=== PATIENT | female | born 1985 | race Two or more races ===

== ENCOUNTER 2021-08-20 09:17 | Outpatient (REF) | payer OTHER, SELFPAY ==
[2021-08-21 05:34] LABS: CT PCR NOT DETECTED (Not Detect.); NG PCR NOT DETECTED (Not Detect.)
[2021-08-21 13:08] LABS: BV Int Neg Control Negative (Negative); BV Int Pos Control Positive (Positive)
[2021-08-28 22:17] LABS: HPV 16 RNA NOT DETECTED (NOT DETECTED); HPV mRNA E6/E7 rflx Detected (Not Detected)
== END 2021-08-20 09:18 | disposition home or self-care (01) ==
LOC: HO.LAB 09:17
PROVIDERS: Visit Provider Advanced Practice Midwife
DX: Z01.419 Encounter for gynecological examination (general) (routine) without abnormal findings (principal); Z11.51 Encounter for screening for human papillomavirus (HPV)
CPT/HCPCS: 87480; 87491; 87510; 87591; 87624; 87625; 87660; 88142

== ENCOUNTER 2021-10-01 10:44 | Outpatient (REF) | payer OTHER, SELFPAY ==
--- NOTE | ~2021-10-01 | US_ITS ---
EXAMINATION: US PELVIS CLINICAL INFORMATION: Dysmenorrhea, last menstrual period 09/13/2021, patient denies pain. COMPARISON: 09/29/2012 TECHNIQUE: Ultrasound of the pelvis is performed using both transabdominal and transvaginal transducers along with Doppler. Transvaginal imaging is performed due to inadequate visualization transabdominally. FINDINGS: Uterus is heterogeneous and measures 8.4 x 5.0 x 6.0 cm. No discrete fibroids. No significant free fluid. Endometrial thickness is 0.8 cm. Bilateral ovaries are unremarkable. Right ovary measures 3.5 x 2.1 x 2.8 cm, volume 11.0 mL and left ovary 2.9 x 2.3 x 2.3 cm, volume 7.7 mL. US/US pelvic and transvaginal IMPRESSION: 1. No discrete fibroids. 2. Endometrial thickness 0.8 cm. 3. Unremarkable bilateral ovaries. 4. No significant free fluid.
== END 2021-10-01 10:45 | disposition home or self-care (01) ==
LOC: HO.US 10:44
PROVIDERS: Visit Provider Advanced Practice Midwife
DX: N94.6 Dysmenorrhea, unspecified (principal)
CPT/HCPCS: 76830; 76856

== ENCOUNTER 2023-12-23 17:24 | Emergency (ER) | payer MEDICAID, SELFPAY ==
--- NOTE | ~2023-12-23 | US_ITS ---
EXAMINATION: US PELVIS CLINICAL INFORMATION: Pain. COMPARISON: None available. TECHNIQUE: Ultrasound of the pelvis is performed using both transabdominal and transvaginal transducers along with Doppler. Transvaginal imaging is performed due to inadequate visualization transabdominally. FINDINGS: Uterus: The uterus is anteverted and measures 8.1 x 4.7 x 5.6 cm. The endometrium measures 0.8 cm containing a small amount of hypoechoic material consistent with fluid. The uterus is smooth in contour and has normal myometrial echogenicity. No visible fibroid. Nabothian cysts are noted. Adnexa: Both ovaries are visualized. There is normal color flow to the adnexa. There is no ovarian torsion. There is no pelvic ascites or fluid collection. Right ovary measures 3 x 2.1 x 2.4 cm. Flow is demonstrated within the right ovary Left ovary measures 3 x 2.1 x 2.6 cm. Flow demonstrated within the left ovary. US/US pelvic and transvaginal IMPRESSION: Small amount of fluid within the endometrial canal. Otherwise unremarkable pelvic ultrasound. Electronically signed by: Juan Garzon MD 12/24/2023 01:20 AM EDT
[2023-12-23 18:47] VITALS: BP 141/107; PULSE 80; RESP 18; TEMP 36.4; O2SAT 98; BMI 31.1
--- NOTE | 2023-12-23 19:05 | ED.GENADULT ---
HPI - General Adult General Chief complaint: Vaginal Bleeding Stated complaint: L sided abdominal pain Time Seen by Provider: 12/23/23 23:04 Source: patient Mode of arrival: ambulatory Limitations: no limitations History of Present Illness ED Provider: Dr. Crystal HPI narrative: Patient is a 38yo female with presents with 2 weeks of vaginal bleeding and Left lower pelvic pain. Patient states she is not as she has a tubal ligation. Onset (ago): week(s) Related Data Home Medications ?Medication ?Instructions ?Recorded ?Confirmed cetirizine 10 mg tablet (Zyrtec) 10 mg PO DAILY PRN 08/20/21 08/20/21 Previous Rx's ?Medication ?Instructions ?Recorded metronidazole 500 mg tablet 500 mg PO BID 7 days #14 tabs 08/21/21 naproxen 500 mg tablet (Naprosyn) 500 mg PO BID #20 tabs 12/24/23 Allergies Allergy/AdvReac Type Severity Reaction Status Date / Time sumatriptan [From IMITREX] Allergy Intermediate VOMITING/DI Verified 12/23/23 18:49 ZZINESS topiramate [Topamax] Allergy Unknown nausea Verified 12/23/23 18:49 SHELLFISH Allergy Severe SWELLING Uncoded 10/08/21 09:12 shellfish Allergy Unknown hives Uncoded 10/08/21 09:12 trees, ragweed, grass Allergy Unknown rash Uncoded 10/08/21 09:12 Review of Systems Review of Systems: Yes all other systems are reviewed and are negative Neurologic: Denies Sensory deficit (Neuro) PMFSH Past Medical History Medical History Asthma Surgical History H/O tubal ligation Family History Family History Father HTN (hypertension) Diabetes Mother HTN (hypertension) Diabetes Paternal Aunt Breast cancer Paternal Aunt Ovarian cancer Paternal Uncle Colon cancer Social History Social History Household Members: Children Housing: Apartment Alcohol intake: current Alcohol intake frequency: holidays/special occasions only Patient Tobacco Use Status: Current everyday Tobacco user Tobacco use type: Cigarette Cigarettes Per Day: 2 Years Smoked: 3 Smoked in Last 30 Days: No Use of substances other than those prescribed or required for medical reasons: No Advance Directives: No Advance Directives Information Provided: No Current occupational status: employed 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 Sexual orientation: Straight/Heterosexual Gender identity: Female Physical Exam ED Vital Signs: Vital Signs - 24 hr 12/23/23 18:47 12/23/23 23:14 Temperature 97.6 F 98.1 F Pulse Rate 80 63 Respiratory Rate 18 16 Blood Pressure 141/107 H 142/94 H Pulse Oximetry 98 98 Oxygen Delivery Method Room Air Room Air BMI result Body Mass Index 31.1 Const General: healthy appearing Nutritional Appearance: average body habitus Orientation/consciousness: oriented to person and patient oriented x3 Limitations: no limitations HENMT Head: Yes normal to inspection Ears: external ears normal General nose exam: Normal external nose present Mouth: Normal oral and palatal mucosa present and oropharynx normal Throat: Yes posterior oropharynx normal Eyes General: appearance normal, both eyes and all related structures Neck Neck: Yes normal visual inspection Chest Chest palpation & inspection: normal inspection of the chest Resp Auscultation: clear to auscultation bilaterally Cardio Jugular venous distension: no JVD Rate: regular rate Rhythm: regular rhythm Heart sounds: S1 normal heart sound present and S2 normal heart sound present GI Other: soft abdomen, slight left lower abdominal pain Palpation (GI): Soft to palpation and No hepatosplenomegaly present Auscultation: normal bowel sounds General: Yes no CVA tenderness Back/Spine/Pelvis Back: no CVA tenderness Skin General skin exam: no rashes or lesions noted Neuro General: oriented to person and patient oriented x3 Cranial nerves: Yes CN's II-XII intact bilaterally Motor exam (neuro): 5/5 motor strength present throughout Sensory Exam: No Sensory deficit (Neuro) Extrem General: Yes normal to inspection Psych Appearance: grossly normal Course Course Course Narrative: This is an RME: Additional HPI, ROS, PE not included below will be deferred to primary provider. RME assessment and note performed by: Purnima Key PA-C This is a 38-year-old female who presents emergency department with complaints of vaginal bleeding since December 08. She also reports left lower quadrant pain. Plan: Labs, further ER evaluation needed. Reevaluation(s) Reevaluation #1: patient with dysfunctional uterine bleeding. 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 Time: 01:47 Medications Administered Discontinued Medications Generic Name Dose Route Start Last Admin Trade Name Jessica PRN Reason Stop Dose Admin Ketorolac Tromethamine 60 mg 12/23/23 23:08 12/23/23 23:52 Ketorolac Tromethamine 60 Mg/2 Ml Vial IM 12/23/23 23:09 60 mg ONCE ONE Administration Medical Decision Making Differential Diagnosis Differential Diagnoses: The differential diagnosis associated with the presentation includes (ectopic , miscarriage, dysfunctional uterine bleeding, ovarian cyst) Admission/Observation Consideration of admission/observation: Escalation of care including admission/observation considered (upon arrival admission was considered) Lab Data 12/23/23 20:21 12/23/23 20:21 Labs: Lab Results 12/23/23 Range/Units 20:21 WBC 9.8 (4.8-10.8) X10*3/uL RBC 4.41 (4.20-5.50) X10*6/uL Hgb 13.6 (12.0-16.0) g/dl Hct 38.6 (37.0-47.0) % MCV 87.5 (80.0-98.0) fL MCH 30.8 (27.0-33.0) pg MCHC 35.2 H (31.0-35.0) g/dl RDW 11.9 (11.0-16.0) % Plt Count 288 (160-400) X10*3/uL MPV 10.2 (9.4-12.3) fL Immature Gran % (Auto) 0.2 (0.0-0.4) % Neut % (Auto) 56.6 (45-73) % Lymph % (Auto) 34.3 (20-40) % [place] % (Auto) 6.3 (2-11) % Eos % (Auto) 2.0 (0-4) % Baso % (Auto) 0.6 (0-2) % Lymph # (Auto) 3.4 (1.2-4.9) X10*3/uL [place] # (Auto) 0.6 (0.1-1.2) X10*3/uL Eos # (Auto) 0.2 (0.0-0.4) X10*3/uL Baso # (Auto) 0.1 (0.0-0.2) X10*3/uL Abs Immat Gran (auto) 0.02 (0.00-0.03) X10*3/uL Absolute Neuts (auto) 5.5 (2.0-8.3) x10*3/uL Absolute Nucleated RBC 0.000 (0.0-0.012) X10*3/uL Nucleated RBC % (auto) 0.0 (0.0-0.2) /100WBC Sodium 140 (135-145) mmol/L Potassium 3.3 (3.3-5.1) mmol/L Chloride 108 (96-108) mmol/L Carbon Dioxide 22 (22-29) mmol/L Anion Gap 13 (12-20) BUN 11 (9-16) mg/dL Creatinine 0.70 (0.5-1.4) mg/dL Estim Creat Clear Calc 106.8 Estimated GFR > 60 Random Glucose 138 H (60-115) mg/dL Calcium 9.1 (8.4-10.2) mg/dL Total Bilirubin 0.3 (0.0-1.0) mg/dL AST 14 (5-31) U/L ALT 15 (0-31) U/L Alkaline Phosphatase 100 (39-117) U/L Total Protein 7.4 (6.5-8.0) g/dL Albumin 4.3 (3.5-5.0) g/dL Urine Color Yellow Urine Appearance Clear Urine pH 6.0 (5.0-9.0) Ur Specific [place] 1.015 (1.005-1.025) Urine Protein Trace (Neg-Trace) mg/dL Urine Glucose (UA) Negative (Negative) mg/dL Urine Ketones Negative (Negative) mg/dL Urine Blood Large (3+) H (Negative) Urine Nitrite Negative (Negative) Ur Leukocyte Esterase Negative (Negative) Urine RBC 6-10 H (0-2) /HPF Urine WBC 0-5 (0-5) /HPF Ur Squamous Epith Cells 11-20 (0-2) /HPF Urine Bacteria 2+ (None Seen) Hyaline Casts 0-2 (0-2) /LPF Urine Test NEGATIVE (NEGATIVE) Radiology Impression Discussion of test interpretation with radiology: I have reviewed the radiologist's reading. (pelvic Us reviewed and I agree) Prescription Management I considered prescription management with: Antibiotic (no pelvic or urinary infection seen) Discharge Plan Discharge Clinical Impression: Dysfunctional uterine bleeding Patient Disposition: Home, Self-Care Instructions: Dysfunctional Uterine Bleeding (ED) Prescriptions: New naproxen [Naprosyn] 500 mg tablet 500 mg PO BID Qty: 20 0RF No Action metronidazole 500 mg tablet 500 mg PO BID 7 Days Qty: 14 0RF Rx Instructions: Take with food, Avoid alcohol and vinegar products cetirizine [Zyrtec] 10 mg tablet 10 mg PO DAILY PRN Referrals: Юлия Werner MD [Primary Care Provider] - 2 days Print Language: Frisian
[2023-12-23 20:28] LABS: MANUAL DIFF FLAG NO
[2023-12-23 20:30] LABS: Basophils Absolute Auto 0.1 X10*3/uL (0.0-0.2); Basophils Percent Auto 0.6 % (0-2); Eosinophils Absolute Auto 0.2 X10*3/uL (0.0-0.4); Hematocrit 38.6 % (37.0-47.0); Hemoglobin 13.6 g/dl (12.0-16.0); Imm Gran Abs Auto 0.02 X10*3/uL (0.00-0.03); Imm Gran Pct Auto 0.2 % (0.0-0.4); Lymphocytes Absolute Auto 3.4 X10*3/uL (1.2-4.9); Lymphocytes Percent Auto 34.3 % (20-40); Mean Corpuscular HGB Conc 35.2 g/dl (31.0-35.0); Mean Corpuscular Hemoglobin 30.8 pg (27.0-33.0); Mean Corpuscular Volume 87.5 fL (80.0-98.0); Mean Platelet Volume 10.2 fL (9.4-12.3); Monocytes Absolute Auto 0.6 X10*3/uL (0.1-1.2); Monocytes Percent Auto 6.3 % (2-11); Neutrophils Absolute Auto 5.5 x10*3/uL (2.0-8.3); Neutrophils Percent Auto 56.6 % (45-73); Platelet Count 288 X10*3/uL (160-400); Red Blood Count 4.41 X10*6/uL (4.20-5.50); Red Cell Distribution Width 11.9 % (11.0-16.0); White Blood Count 9.8 X10*3/uL (4.8-10.8)
[2023-12-23 20:43] LABS: Appearance Urine Clear; Color Urine Yellow; Glucose Urine UA Negative (Negative); Leukocyte Esterase Urine Negative (Negative); Nitrite Urine Negative (Negative); Specific Gravity - Urine 1.015 (1.005-1.025); UMIC TRIGGER UACC YES; Urine Blood Large (3+) (Negative); Urine Ketones Negative (Negative); Urine Protein Trace mg/dL (Neg-Trace)
[2023-12-23 20:44] LABS: Alanine Aminotransferase 15 U/L (0-31); Albumin Level 4.3 g/dL (3.5-5.0); Alkaline Phosphatase 100 U/L (39-117); Anion Gap 13 (12-20); Aspartate Amino Transferase 14 U/L (5-31); Bilirubin Total 0.3 mg/dL (0.0-1.0); Blood Urea Nitrogen 11 mg/dL (9-16); Calcium 9.1 mg/dL (8.4-10.2); Carbon Dioxide 22 mmol/L (22-29); Chloride 108 mmol/L (96-108); Creatinine Clr Calc Pharmacy 106.8; Estimated Glomerular Filt Rate > 60; Glucose Random 138 mg/dL (60-115); Potassium 3.3 mmol/L (3.3-5.1); Sodium 140 mmol/L (135-145); Total Protein 7.4 g/dL (6.5-8.0); UPreg QC Valid YES; Urine Pregnancy NEGATIVE (NEGATIVE)
[2023-12-23 21:35] LABS: Bacteria Urine 2+ (None Seen); Hyaline Casts Urine 0-2 /LPF (0-2); WBC Urine 0-5 /HPF (0-5)
[2023-12-23 23:14] VITALS: BP 142/94; PULSE 63; RESP 16; TEMP 36.7; O2SAT 98
[2023-12-23] MEDS: Ketorolac Tromethamine 60 MG/2 ML VIAL IM (23:52)
[2023-12-24 02:04] VITALS: BP 127/80; PULSE 58; RESP 18; TEMP 36.4; O2SAT 96
[2023-12-24 02:09] VITALS: BP 127/80; PULSE 58; RESP 18; TEMP 36.4; O2SAT 96
== END 2023-12-24 02:09 | disposition home or self-care (01) ==
PROVIDERS: Emergency Provider Emergency Medicine; PCP Internal Medicine
DX: N93.8 Other specified abnormal uterine and vaginal bleeding (principal); R10.2 Pelvic and perineal pain; R10.32 Left lower quadrant pain; Z79.899 Other long term (current) drug therapy
CPT/HCPCS: 36415; 76830; 76856; 80053; 81001; 81025; 85025; 96372; 99284; J1885

== ENCOUNTER 2024-02-14 13:52 | Inpatient (IN) | payer MEDICAID, SELFPAY ==
--- NOTE | ~2024-02-14 | CT_ITS ---
EXAMINATION: CT ABDOMEN AND PELVIS WITH CONTRAST CLINICAL INFORMATION: Right lower quadrant abdominal pain. Rule out appendicitis COMPARISON: CT abdomen and pelvis October 02, 2011 TECHNIQUE: Multidetector volumetric images were obtained from the superior aspect of the liver through the pubic symphysis following administration 85 mL of Omnipaque 350 intravenous contrast. Sagittal and coronal reformatted images were obtained on the technologist's workstation. Oral contrast: No This CT examination was performed using dose optimization techniques as appropriate, variously including the following: *Automated exposure control *Adjustment of mA and/or kV according to patient size (this includes techniques or standardized protocols for targeted exams where dose is matched to indication/reason for exam; i.e. extremities or head) *Use of iterative reconstruction technique DLP: 666 mGy-cm FINDINGS: LUNG BASES: The visualized lung bases are unremarkable. LIVER, GALLBLADDER, AND BILIARY TREE: The liver is normal in size, shape, and attenuation. No focal hepatic lesion or biliary ductal dilatation is present. The gallbladder is unremarkable with no evidence of radiopaque gallstones, gallbladder wall thickening, or obvious pericholecystic inflammatory changes. PANCREAS: Unremarkable. SPLEEN: Unremarkable. ADRENAL GLANDS: Unremarkable. KIDNEYS AND URETERS: The kidneys are normal in size, shape, and attenuation. No hydronephrosis, hydroureter, or calculi seen. No perinephric stranding. BLADDER: Unremarkable. GASTROINTESTINAL TRACT: Inflammatory changes around the cecum and base of the appendix. The appendix wall is thickened at the base, extending into the cecum which is also thickened proximally. ABDOMINAL WALL: No significant hernia is appreciated. LYMPH NODES: Prominent right lower quadrant mesenteric lymph nodes VASCULAR: Unremarkable. PELVIC VISCERA: Senescent adnexa are unremarkable. Small amount of reactive fluid in the upper pelvis. OSSEOUS STRUCTURES: Unremarkable. CT/CT abdomen pelvis w IV con IMPRESSION: Inflammatory changes around the cecum and base of the appendix. The appendix wall is thickened at the base, extending into the cecum which is also thickened proximally. Findings are most consistent with acute appendicitis. No evidence of rupture or abscess. Fleischner guidelines were followed. Electronically signed by: Farshad Eastman MD 02/14/2024 04:33 PM [facility]
[2024-02-14 14:01] VITALS: BP 150/94; PULSE 92; RESP 18; TEMP 36.6; O2SAT 98; BMI 29.8
--- NOTE | 2024-02-14 14:01 | ED_ITS ---
HPI - Abdominal Pain General Chief Complaint: Abdominal Pain Stated Complaint: R Side pain Time Seen by Provider: 02/14/24 16:27 Source: patient Mode of arrival: ambulatory Limitations: no limitations History of Present Illness ED Provider: SAEED MONTOYA PA-C HPI narrative: 38 year old female with pmhx significant for asthma and dysmenorrhea presents to the ED today for evaluation of right lower abdominal pain x5 days. Reports constant pain over the last 5 days however waxing and waning in severity. She reports it became more severe this morning, prompting her to come to the ED. Pain does not radiate. Reports associated nausea without vomiting. Denies diarrhea, constipation, dysuria, hematuria, flank pain. Related Data Home Medications ?Medication ?Instructions ?Recorded ?Confirmed cetirizine 10 mg tablet (Zyrtec) 10 mg PO DAILY PRN Pain 08/20/21 02/14/24 acetaminophen 500 mg tablet 1,000 mg PO DAILY PRN Pain 02/14/24 02/14/24 Allergies Allergy/AdvReac Type Severity Reaction Status Date / Time sumatriptan [From IMITREX] Allergy Intermediate VOMITING/DI Verified 02/14/24 14:03 ZZINESS topiramate [Topamax] Allergy Unknown nausea Verified 02/14/24 14:03 SHELLFISH Allergy Severe SWELLING Uncoded 02/14/24 14:03 shellfish Allergy Unknown hives Uncoded 02/14/24 14:03 trees, ragweed, grass Allergy Unknown rash Uncoded 02/14/24 14:03 Review of Systems Review of Systems Constitutional: No fever, chills, fatigue, night sweats, weight changes ENT/Mouth: No ear pain, hearing loss, nasal congestion, sinus pain, rhinorrhea, sore throat Eyes: No eye pain, swelling, redness, vision changes, discharge Cardio: No chest pain, palpitations, MCCARTNEY, orthopnea, peripheral edema Pulm: No SOB, cough, sputum, wheezing, dyspnea, hemoptysis GI: No vomiting, hematemesis, diarrhea, constipation, hematochezia, melena, + abdominal pain, +nausea : No irregular bleeding, dysuria, frequency, urgency, hesitancy, hematuria, flank pain, urinary flow changes, urinary incontinence or retention MSK: No back pain, neck pain, joint pain, myalgias Skin: No lesions, rashes Neuro: No weakness, numbness, paresthesias, LOC, dizziness, headache Psych: No anxiety/panic, depression, SI/HI, AH/VH All other systems reviewed and are negative. [facility] Past Medical History Attestation statement: The following information was validated with the patient. Source: old records reviewed and nursing notes reviewed Medical History Asthma Surgical History H/O tubal ligation Family History Family History Father HTN (hypertension) Diabetes Mother HTN (hypertension) Diabetes Paternal Aunt Breast cancer Paternal Aunt Ovarian cancer Paternal Uncle Colon cancer Social History Social History Household Members: Children Housing: Apartment Alcohol intake: current Alcohol intake frequency: holidays/special occasions only Alcohol type: beer, wine and hard liquor Patient Tobacco Use Status: Current everyday Tobacco user Tobacco use type: Cigarette Cigarettes Per Day: 2 Years Smoked: 3 Smoked in Last 30 Days: Yes Substance Use Type: Marijuana Substance Use Frequency: Daily Last Used Substance: Days (ago) Any prior treatment program specific to substance use: No Advance Directives: No Advance Directives Information Provided: No Do you have a plan to hurt others: No Plan Patient : No Current occupational status: employed 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 Skin: Warm, dry, intact. No rashes or lesions. Head: Normocephalic, atraumatic. Cardiac: Chest wall symmetric. RRR Lungs: Normal respiratory effort without accessory muscle use. CTA bilaterally Abdomen: +soft, nondistended, exquisitely tender to current patient of right lower quadrant with voluntary guarding and positive McBurney point tenderness. No rebound tenderness. Normoactive bowel sounds x4. No CVAT bilaterally Back: No midline spinous or paraspinal tenderness. No step off deformity. Ext: Upper and lower extremities atraumatic, without tenderness, deformity, swelling or erythema. Full ROM throughout. Neuro: AOx3. Normal speech. Ambulating with steady gait. Psych: Appropriate mood and affect. Responds appropriately to questions. Course Course Course Narrative: This is a rapid medical exam. Deferred additional HPI, ROS, PE to primary provider. 38 yo female with history of asthma with right sided abdominal pain, chills, tactile temps x several days. LMP 01/22 Surgical history-tubal ligation Will obtain labs, UA, ur preg VSS -ACoy Kunz [employer] Reevaluation(s) Reevaluation #1: Leukocytosis to 15.9 with left shift. No anemia. H&H stable. Chemistry without acute electrolyte abnormality requiring intervention. No BRAXTON. Lipase WNL. Urine negative for nitrites, leukocyte esterase, 3-5 squamous epithelial cells, 1+ urine bacteria. Possible contamination, will await culture for treatment. Negative for . CT abdomen/pelvis showing inflammatory changes around the cecum and base of the appendix with thickening of the appendix wall at the base, extending into the cecum which is also thickened proximally. Findings are consistent with acute appendicitis. There is no rupture or abscess. > I discussed findings with Dr. Santiago who will admit for IV antibiotics with possible appendectomy tomorrow. Patient is agreeable. Zosyn ordered. Dr. Santiago to place admission orders. Medical Decision Making Medical Decision Making [facility] Narrative: 38 year old female with pmhx significant for asthma and dysmenorrhea presents to the ED today for evaluation of right lower abdominal pain x5 days. Patient was hypertensive, vitals otherwise WNL. She is nontoxic appearing and in NAD. On exam, soft, nondistended, exquisitely tender to current patient of right lower quadrant with voluntary guarding and positive McBurney point tenderness. No rebound tenderness. Normoactive bowel sounds x4. No CVAT bilaterally. Differential diagnoses: appendicitis, diverticulitis, diverticulosis, UTI, IUP.?Low suspicion for acute hepatobiliary disease (including acute cholecystitis), acute infectious processes (pneumonia, hepatitis, pyelonephritis, PID, TOA), vascular catastrophe, bowel obstruction or viscus perforation, ovarian cyst/ rupture/ torsion, ectopic. Presentation not consistent with other acute, emergent causes of abdominal pain at this time. Plan for labs, UA, u preg, CT a/p, pain control Differential Diagnosis Differential Diagnoses: The differential diagnosis associated with the presentation includes As above Admission/Observation Consideration of admission/observation: Escalation of care including admission/observation considered Patient to be admitted to surgery for acute appendicitis Consult Healthcare Provider Management of the patient was discussed with: [place] [employer] (Dr. Santiago (general surgery)) Lab Data MDM Lab Attestation statement: I reviewed the patient's lab results. as above. 02/14/24 14:33 02/14/24 14:33 Labs: Lab Results 02/14/24 Range/Units 14:33 WBC 15.9 H (4.8-10.8) X10*3/uL RBC 4.40 (4.20-5.50) X10*6/uL Hgb 13.8 (12.0-16.0) g/dl Hct 38.3 (37.0-47.0) % MCV 87.0 (80.0-98.0) fL MCH 31.4 (27.0-33.0) pg MCHC 36.0 H (31.0-35.0) g/dl RDW 12.0 (11.0-16.0) % Plt Count 259 (160-400) X10*3/uL MPV 10.7 (9.4-12.3) fL Immature Gran % (Auto) 0.5 H (0.0-0.4) % Neut % (Auto) 80.4 H (45-73) % Lymph % (Auto) 12.2 L (20-40) % [place] % (Auto) 5.8 (2-11) % Eos % (Auto) 0.7 (0-4) % Baso % (Auto) 0.4 (0-2) % Lymph # (Auto) 2.0 (1.2-4.9) X10*3/uL [place] # (Auto) 0.9 (0.1-1.2) X10*3/uL Eos # (Auto) 0.1 (0.0-0.4) X10*3/uL Baso # (Auto) 0.1 (0.0-0.2) X10*3/uL Abs Immat Gran (auto) 0.08 H (0.00-0.03) X10*3/uL Absolute Neuts (auto) 12.8 H (2.0-8.3) x10*3/uL Absolute Nucleated RBC 0.000 (0.0-0.012) X10*3/uL Nucleated RBC % (auto) 0.0 (0.0-0.2) /100WBC Sodium 138 (135-145) mmol/L Potassium 4.2 D (3.3-5.1) mmol/L Chloride 106 (96-108) mmol/L Carbon Dioxide 22 (22-29) mmol/L Anion Gap 14 (12-20) BUN 10 (9-16) mg/dL Creatinine 0.61 (0.5-1.4) mg/dL Estim Creat Clear Calc 120.0 Estimated GFR > 60 Random Glucose 91 (60-115) mg/dL Calcium 9.5 (8.4-10.2) mg/dL Total Bilirubin 0.7 (0.0-1.0) mg/dL Direct Bilirubin 0.2 (0.0-0.5) mg/dL AST 34 H (5-31) U/L ALT 35 H (0-31) U/L Alkaline Phosphatase 103 (39-117) U/L Total Protein 7.9 (6.5-8.0) g/dL Albumin 4.3 (3.5-5.0) g/dL Lipase 8 (8-78) U/L Urine Color Yellow Urine Appearance Clear Urine pH 6.0 (5.0-9.0) Ur Specific [place] 1.015 (1.005-1.025) Urine Protein Negative (Neg-Trace) mg/dL Urine Glucose (UA) Negative (Negative) mg/dL Urine Ketones Negative (Negative) mg/dL Urine Blood Trace H (Negative) Urine Nitrite Negative (Negative) Ur Leukocyte Esterase Negative (Negative) Urine RBC 0-2 (0-2) /HPF Urine WBC 0-5 (0-5) /HPF Ur Squamous Epith Cells 3-5 (0-2) /HPF Urine Bacteria 1+ (None Seen) Hyaline Casts 0-2 (0-2) /LPF Urine Test NEGATIVE (NEGATIVE) Independent Interpretation I performed an independent interpretation of an: CT Scan Interpretation: CT with thickening of the appendix wall Radiology Impression Discussion of test interpretation with radiology: I have reviewed the radiologist's reading. Radiologist Impression: EXAMINATION: CT ABDOMEN AND PELVIS WITH CONTRAST CLINICAL INFORMATION: Right lower quadrant abdominal pain. Rule out appendicitis COMPARISON: CT abdomen and pelvis October 02, 2011 TECHNIQUE: Multidetector volumetric images were obtained from the superior aspect of the liver through the pubic symphysis following administration 85 mL of Omnipaque 350 intravenous contrast. Sagittal and coronal reformatted images were obtained on the technologist's workstation. Oral contrast: No This CT examination was performed using dose optimization techniques as appropriate, variously including the following: *Automated exposure control *Adjustment of mA and/or kV according to patient size (this includes techniques or standardized protocols for targeted exams where dose is matched to indication/reason for exam; i.e. extremities or head) *Use of iterative reconstruction technique DLP: 666 mGy-cm FINDINGS: LUNG BASES: The visualized lung bases are unremarkable. LIVER, GALLBLADDER, AND BILIARY TREE: The liver is normal in size, shape, and attenuation. No focal hepatic lesion or biliary ductal dilatation is present. The gallbladder is unremarkable with no evidence of radiopaque gallstones, gallbladder wall thickening, or obvious pericholecystic inflammatory changes. PANCREAS: Unremarkable. SPLEEN: Unremarkable. ADRENAL GLANDS: Unremarkable. KIDNEYS AND URETERS: The kidneys are normal in size, shape, and attenuation. No hydronephrosis, hydroureter, or calculi seen. No perinephric stranding. BLADDER: Unremarkable. GASTROINTESTINAL TRACT: Inflammatory changes around the cecum and base of the appendix. The appendix wall is thickened at the base, extending into the cecum which is also thickened proximally. ABDOMINAL WALL: No significant hernia is appreciated. LYMPH NODES: Prominent right lower quadrant mesenteric lymph nodes VASCULAR: Unremarkable. PELVIC VISCERA: Senescent adnexa are unremarkable. Small amount of reactive fluid in the upper pelvis. OSSEOUS STRUCTURES: Unremarkable. CT/CT abdomen pelvis w IV con IMPRESSION: Inflammatory changes around the cecum and base of the appendix. The appendix wall is thickened at the base, extending into the cecum which is also thickened proximally. Findings are most consistent with acute appendicitis. No evidence of rupture or abscess. Fleischner guidelines were followed. Electronically signed by: Farshad Eastman MD 02/14/2024 04:33 PM EST External Record Review External record reviewed: Inpatient record, Office record, Outpatient record, Prior outpatient labs, Prior outpatient radiology, Primary care record and Outside ED record Prescription Management I considered prescription management with: Pain Medication and Antibiotic Social Determinants Patient?s care significantly limited by Social Determinants of Health including: Other Social Determinant of Health Medications Administered Discontinued Medications Generic Name Dose Route Start Last Admin Trade Name Freq PRN Reason Stop Dose Admin Sodium Chloride 1,000 mls @ 999 mls/hr 02/14/24 15:40 02/14/24 15:52 Ns IV 02/14/24 16:40 999 mls/hr .Q1H1M STA Administration Piperacillin Sod/Tazobactam 50 mls @ 100 mls/hr 02/14/24 16:47 02/14/24 17:30 Sod 3.375 gm/ Sodium Chloride IV 02/14/24 17:16 Infused ONCE ONE Infusion Iohexol 100 ml 02/14/24 16:05 02/14/24 16:05 Iohexol 350 Mg/Ml 100 Ml Infus..Btl IV 02/14/24 16:06 85 ml ONCE ONE Administration Ketorolac Tromethamine 15 mg 02/14/24 15:40 02/14/24 16:24 Ketorolac Tromethamine 15 Mg/Ml Vial IVPUSH 02/14/24 15:41 15 mg ONCE ONE Administration Critical Care Time Critical Care Time Critical Care Time: Yes Total Critical Care Time: 33 Attestation: Critical care time in the amount of 33 minutes has been provided to the patient in terms of direct patient care, frequent reevaluation, consultation with general surgery, review and interpretation of medical data and results, and management of potentially life-threatening conditions. This is all outside of any medical procedures. Discharge Plan Discharge Clinical Impression: Acute appendicitis Patient Disposition: Admitted As Inpatient
[2024-02-14 14:38] LABS: MANUAL DIFF FLAG NO
[2024-02-14 14:39] LABS: Basophils Absolute Auto 0.1 X10*3/uL (0.0-0.2); Basophils Percent Auto 0.4 % (0-2); Eosinophils Absolute Auto 0.1 X10*3/uL (0.0-0.4); Eosinophils Percent Auto 0.7 % (0-4); Hematocrit 38.3 % (37.0-47.0); Hemoglobin 13.8 g/dl (12.0-16.0); Imm Gran Abs Auto 0.08 X10*3/uL (0.00-0.03); Imm Gran Pct Auto 0.5 % (0.0-0.4); Lymphocytes Percent Auto 12.2 % (20-40); Mean Corpuscular Hemoglobin 31.4 pg (27.0-33.0); Mean Platelet Volume 10.7 fL (9.4-12.3); Monocytes Absolute Auto 0.9 X10*3/uL (0.1-1.2); Monocytes Percent Auto 5.8 % (2-11); Neutrophils Absolute Auto 12.8 x10*3/uL (2.0-8.3); Neutrophils Percent Auto 80.4 % (45-73); Platelet Count 259 X10*3/uL (160-400); White Blood Count 15.9 X10*3/uL (4.8-10.8)
[2024-02-14 14:42] LABS: Appearance Urine Clear; Color Urine Yellow; Glucose Urine UA Negative (Negative); Leukocyte Esterase Urine Negative (Negative); Nitrite Urine Negative (Negative); Specific Gravity - Urine 1.015 (1.005-1.025); UMIC TRIGGER UACC YES; Urine Blood Trace (Negative); Urine Ketones Negative (Negative); Urine Protein Negative (Neg-Trace)
[2024-02-14 14:46] LABS: Bacteria Urine 1+ (None Seen); Hyaline Casts Urine 0-2 /LPF (0-2); RBC Urine 0-2 /HPF (0-2); UPreg QC Valid YES; Urine Pregnancy NEGATIVE (NEGATIVE); WBC Urine 0-5 /HPF (0-5)
[2024-02-14 14:55] LABS: Alanine Aminotransferase 35 U/L (0-31); Albumin Level 4.3 g/dL (3.5-5.0); Alkaline Phosphatase 103 U/L (39-117); Anion Gap 14 (12-20); Aspartate Amino Transferase 34 U/L (5-31); Bilirubin Direct 0.2 mg/dL (0.0-0.5); Bilirubin Total 0.7 mg/dL (0.0-1.0); Blood Urea Nitrogen 10 mg/dL (9-16); Calcium 9.5 mg/dL (8.4-10.2); Carbon Dioxide 22 mmol/L (22-29); Chloride 106 mmol/L (96-108); Estimated Glomerular Filt Rate > 60; Glucose Random 91 mg/dL (60-115); Lipase 8 U/L (8-78); Potassium 4.2 mmol/L (3.3-5.1); Sodium 138 mmol/L (135-145); Total Protein 7.9 g/dL (6.5-8.0)
[2024-02-14 15:36] VITALS: BP 167/105; PULSE 95; RESP 18; TEMP 36.6; O2SAT 98
[2024-02-14] MEDS: 0.9 % Sodium Chloride 1,000 ML 999 ML IV (15:52)
[2024-02-14] MEDS: iohexoL 350 MG/ML 100 ML INFUS..BTL IV (16:05)
[2024-02-14] MEDS: Ketorolac Tromethamine 15 MG/ML VIAL IVPUSH (16:24)
[2024-02-14 16:47] VITALS: BP 147/92; PULSE 82; RESP 19; TEMP 36.9; O2SAT 98
[2024-02-14] MEDS: Piperacillin Sodium/Tazobactam 3.375 GM in 0.9 % Sodium Chloride 50 ML IV ×2 (17:00→23:36)
--- NOTE | 2024-02-14 17:59 | PHA.MEDREC ---
Pharmacy Consult ? Medication Reconciliation Pharmacy has completed the medication reconciliation. Spoke to patient and confirmed medication list.
[2024-02-14] MEDS: Acetaminophen 1,000 MG/100 ML PIGGYBACK 400 MG IV (18:30)
[2024-02-14] MEDS: Dextrose 5 % and Lactated Ring 1,000 ML 125 ML IVCONT (18:52)
--- NOTE | 2024-02-14 18:55 | PC.NURSE ---
Fluids paused for CT scan @1601
[2024-02-14 20:28] VITALS: RESP 18
[2024-02-14] MEDS: HYDROmorphone HCl 0.5 MG/0.5 ML SYRINGE IVPUSH (20:28)
[2024-02-14 22:23] VITALS: BP 118/70; PULSE 64; RESP 17; TEMP 37.1; O2SAT 97
[2024-02-15] VITALS (19 sets, daily range): BP systolic 110–136; BP diastolic 60–89; PULSE 55–80; RESP 13–20; TEMP 36.1–37.1; O2SAT 94–98
[2024-02-15] MEDS: Acetaminophen 1,000 MG/100 ML PIGGYBACK 400 MG IV ×5 (00:06→23:53)
[2024-02-15] MEDS: Dextrose 5 % and Lactated Ring 1,000 ML 125 ML IVCONT ×3 (03:12→21:55)
[2024-02-15] MEDS: HYDROmorphone HCl 0.5 MG/0.5 ML SYRINGE IVPUSH ×3 (03:51→20:49)
--- NOTE | 2024-02-15 03:53 | PC.NURSE ---
pt has been sleeping and woke up in ruq abd pain 10/17. skin warm and dry, no n/v/
[2024-02-15] MEDS: Piperacillin Sodium/Tazobactam 3.375 GM in 0.9 % Sodium Chloride 50 ML IV (05:29)
[2024-02-15 05:47] LABS: MANUAL DIFF FLAG NO
[2024-02-15 05:50] LABS: Basophils Absolute Auto 0.1 X10*3/uL (0.0-0.2); Basophils Percent Auto 0.5 % (0-2); Eosinophils Absolute Auto 0.2 X10*3/uL (0.0-0.4); Hematocrit 34.4 % (37.0-47.0); Hemoglobin 11.8 g/dl (12.0-16.0); Imm Gran Abs Auto 0.05 X10*3/uL (0.00-0.03); Imm Gran Pct Auto 0.5 % (0.0-0.4); Lymphocytes Absolute Auto 2.2 X10*3/uL (1.2-4.9); Lymphocytes Percent Auto 21.2 % (20-40); Mean Corpuscular HGB Conc 34.3 g/dl (31.0-35.0); Mean Corpuscular Hemoglobin 30.6 pg (27.0-33.0); Mean Corpuscular Volume 89.1 fL (80.0-98.0); Mean Platelet Volume 10.9 fL (9.4-12.3); Monocytes Absolute Auto 0.8 X10*3/uL (0.1-1.2); Monocytes Percent Auto 7.6 % (2-11); Neutrophils Absolute Auto 7.2 x10*3/uL (2.0-8.3); Neutrophils Percent Auto 68.2 % (45-73); Platelet Count 221 X10*3/uL (160-400); Red Blood Count 3.86 X10*6/uL (4.20-5.50); Red Cell Distribution Width 12.1 % (11.0-16.0); White Blood Count 10.5 X10*3/uL (4.8-10.8)
--- NOTE | 2024-02-15 05:52 | PM.HPGS ---
History of Present Illness History of Present Illness Date of Service: 02/15/24 Chief complaint: acute appendicitis Narrative: Janneth Colunga is a 38 year old female presenting with complaints of right lower abdominal pain which has waxed and waned over a 5 day period, now increased in severity. The pain initially began in the epigastrium and periumbilical region but gradually radiated to the right lower quadrant. She also notes pain extending into the right leg. The pain seems to increase with movement. She was initially nauseous with decreased appetite but currently reports being hungry. The pain varies between 5 to 8/10 in severity. She denies a previous history of similar symptoms. She subsequently presented to the emergency department was noted to have an elevated WBC. CT abdomen and pelvis revealed a dilated, thickened and inflamed appendix which appears to be in a retrocecal location. The patient is admitted to the surgical service for further management of this acute appendicitis. Review of Systems Review of Systems: Yes all other systems are reviewed and are negative Constitutional: Constitutional: Denies chills, Denies fever(s), Denies headache(s), Reports poor appetite and Denies weakness ENT: Denies headache(s) Cardiovascular: Cardiovascular: Denies chest pain, Denies irregular heart rhythm, Denies palpitations and Denies dyspnea Respiratory: Respiratory: Denies cough, Denies excessive phlegm production and Denies dyspnea Gastrointestinal: Gastrointestinal: Reports abdominal pain, Denies bloating, Denies change in bowel habits, Denies constipation, Denies heartburn, Denies diarrhea, Reports nausea and Denies vomiting Genitourinary: Genitourinary: Denies urinary frequency Musculoskeletal: Musculoskeletal: Denies back pain, Denies muscle weakness and Denies numbness Integumentary/Breasts: Skin/Breast: Denies changing lesions and Denies unusual bruising Neurologic: Denies headache(s), Denies numbness, Denies paresthesias and Denies weakness Psychiatric: Psychiatric: Denies anxiety and Denies depression Endocrine: Endocrine: Denies palpitations Hematologic/Lymphatic: Hematologic/Lymphatic: Denies lymphadenopathy [facility] Past Medical History Medical History Asthma Family History Family History Father HTN (hypertension) Diabetes Mother HTN (hypertension) Diabetes Paternal Aunt Breast cancer Paternal Aunt Ovarian cancer Paternal Uncle Colon cancer Surgical History Surgical History H/O tubal ligation Social History Social History Household Members: Children Housing: Apartment Alcohol intake: current Alcohol intake frequency: holidays/special occasions only Alcohol type: beer, wine and hard liquor Patient Tobacco Use Status: Current everyday Tobacco user Tobacco use type: Cigarette Cigarettes Per Day: 2 Years Smoked: 3 Smoked in Last 30 Days: Yes Substance Use Type: Marijuana Substance Use Frequency: Daily Last Used Substance: Days (ago) Any prior treatment program specific to substance use: No Advance Directives: No Advance Directives Information Provided: No Do you have a plan to hurt others: No Plan Nutrition Risks: No Nutritional Risk Patient : No Current occupational status: employed 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 Sexual orientation: Straight/Heterosexual Gender identity: Female Meds Allergies Allergy/AdvReac Type Severity Reaction Status Date / Time sumatriptan [From IMITREX] Allergy Intermediate VOMITING/DI Verified 02/14/24 14:03 ZZINESS topiramate [Topamax] Allergy Unknown nausea Verified 02/14/24 14:03 SHELLFISH Allergy Severe SWELLING Uncoded 02/14/24 14:03 shellfish Allergy Unknown hives Uncoded 02/14/24 14:03 trees, ragweed, grass Allergy Unknown rash Uncoded 02/14/24 14:03 Active Medications: Current Medications Hydromorphone HCl (Hydromorphone Hcl 0.5 Mg/0.5 Ml Syringe) 0.5 mg IVPUSH Q3H PRN; Protocol PRN Reason: Pain, Severe (Pain Scale 7-10) Last Admin: 02/15/24 03:51 Dose: 0.5 mg Acetaminophen (Ofirmev) 1,000 mg in 100 mls @ 400 mls/hr IV Q6H [facility] Last Infusion: 02/15/24 05:51 Dose: Infused Dextrose/Lactated Ringer's (D5lr) 1,000 mls @ 125 mls/hr IVCONT .Q8H [facility] Last Admin: 02/15/24 03:12 Dose: 125 mls/hr Piperacillin Sod/Tazobactam (Sod 3.375 gm/ Sodium Chloride) 50 mls @ 100 mls/hr IV Q6H [facility] Last Admin: 02/15/24 05:29 Dose: 100 mls/hr Ondansetron HCl (Ondansetron Hcl 4 Mg/2 Ml Vial) 4 mg IVPUSH QID PRN PRN Reason: Nausea Sodium Chloride (0.9 % Sodium Chloride Flush 3 Ml Syringe) 3 ml IVFLUSH QSHIFT [facility] Last Admin: 02/15/24 00:05 Dose: Not Given Zolpidem Tartrate (Zolpidem Tartrate 5 Mg Tablet) 5 mg PO BEDTIME PRN PRN Reason: Insomnia Home Medications ?Medication ?Instructions ?Recorded ?Confirmed ?Last Taken ?Type cetirizine 10 mg tablet (Zyrtec) 10 mg PO DAILY PRN Pain 08/20/21 02/14/24 Unknown History acetaminophen 500 mg tablet 1,000 mg PO DAILY PRN Pain 02/14/24 02/14/24 Unknown History Physical Exam Vital Signs: Vital Signs: Last Vital Signs Temp 98.3 F 02/15/24 05:24 Pulse 64 02/15/24 05:24 Resp 16 02/15/24 05:24 BP 114/74 02/15/24 05:24 Pulse Ox 98 02/15/24 03:05 O2 Del Method Room Air 02/15/24 03:05 BMI result Body Mass Index 29.8 Const: General: cooperative and no acute distress Nutritional Appearance: well nourished Orientation/consciousness: patient oriented x3 Limitations: no limitations HEENT: Head: Yes normocephalic and Yes atraumatic Ears: hearing grossly normal bilaterally Resp: Effort & Inspection: normal respiratory effort, no audible wheezes, no cough and no respiratory distress Cardio: Jugular venous distension: no JVD GI: Inspection: Yes normal to inspection Palpation (GI): Soft to palpation, Tenderness to palpation present (GI) in the RLQ and at McBurney's point, no guarding, not rigid and no masses Percussion: Yes normal to percussion Auscultation: abnormal bowel sounds Rectal Exam - Female: deferred Skin: Other: Warm, dry, no rash Neuro: General: patient oriented x3 Extrem: General: Yes no clubbing, cyanosis or edema Results Results Labs: Short CBC 02/14/24 02/15/24 Range/Units 14:33 05:17 WBC 15.9 H 10.5 (4.8-10.8) X10*3/uL Hgb 13.8 11.8 L (12.0-16.0) g/dl Hct 38.3 34.4 L (37.0-47.0) % Plt Count 259 221 (160-400) X10*3/uL BMP 02/14/24 14:33 Sodium 138 Potassium 4.2 D Chloride 106 Carbon Dioxide 22 BUN 10 Creatinine 0.61 Calcium 9.5 Liver Function 02/14/24 Range/Units 14:33 Total Bilirubin 0.7 (0.0-1.0) mg/dL Direct Bilirubin 0.2 (0.0-0.5) mg/dL AST 34 H (5-31) U/L ALT 35 H (0-31) U/L Alkaline Phosphatase 103 (39-117) U/L Albumin 4.3 (3.5-5.0) g/dL Urine 02/14/24 Range/Units 14:33 Urine Color Yellow Urine Appearance Clear Urine pH 6.0 (5.0-9.0) Ur Specific [place] 1.015 (1.005-1.025) Urine Protein Negative (Neg-Trace) mg/dL Urine Glucose (UA) Negative (Negative) mg/dL Urine Test NEGATIVE (NEGATIVE) Abdomen CT scan report/results: image reviewed CT scan - pelvis: image reviewed Assessment and Plan (1) Acute appendicitis: Qualifiers: Acute appendicitis type: with localized peritonitis Appendicitis gangrene presence: unspecified whether gangrene present Appendicitis perforation presence: unspecified whether perforation present Appendicitis abscess presence: unspecified whether abscess present Qualified Code(s): K35.30 - Acute appendicitis with localized peritonitis, without perforation or gangrene Status: Acute Plan 38-year-old female patient presenting with complaints of abdominal pain in the right lower quadrant of several days duration. Workup revealed an elevated WBC and CT findings suggestive of acute appendicitis. I recommended a laparoscopic or possible open appendectomy. After discussion of the procedure, risks, and alternatives, she consents to a laparoscopic or possible open appendectomy. She has been added onto the operative schedule for today. Quality Stroke Does the patient have a stroke diagnosis?: No VTE Prior VTE?: No VTE Risk Level:: Surgical - low VTE Device Contraindication: N/A - Device Ordered VTE Drug Contraindication: Treatment Not Indicated Procedures Date of Service Date of Service: 02/15/24
[2024-02-15 06:09] LABS: Anion Gap 12 (12-20); Blood Urea Nitrogen 8 mg/dL (9-16); Calcium 8.4 mg/dL (8.4-10.2); Carbon Dioxide 22 mmol/L (22-29); Chloride 108 mmol/L (96-108); Creatinine Clr Calc Pharmacy 112.6; Estimated Glomerular Filt Rate > 60; Glucose Random 117 mg/dL (60-115); Potassium 3.7 mmol/L (3.3-5.1); Sodium 138 mmol/L (135-145)
--- NOTE | 2024-02-15 06:25 | PC.NURSE ---
pt ambulating to bathroom with steady gait. no s/s of distress. ivf infusing pain level at 4/10
--- NOTE | 2024-02-15 09:31 | P.CONAN_ITS ---
HPI - Anesthesia Eval Consult details Narrative: Acute appendicitis PMFSH Active Problems Active Problems: All Active Problems Acute appendicitis (Acute) Menorrhagia with regular cycle (Acute) Screen for sexually transmitted diseases (Acute) Cervical cancer screening (Acute) Well woman exam with routine gynecological exam (Acute) Dysmenorrhea, unspecified (Acute) Past Medical History Medical History Asthma Family History Family History Father HTN (hypertension) Diabetes Mother HTN (hypertension) Diabetes Paternal Aunt Breast cancer Paternal Aunt Ovarian cancer Paternal Uncle Colon cancer Family history of problems with anesthesia: No Surgical History Surgical History H/O tubal ligation History of Problems with Anesthesia: No Social History Social History Household Members: Children Housing: Apartment Do you presently have visiting nurse or other home services: No Alcohol intake: current Alcohol intake frequency: holidays/special occasions only Alcohol type: beer, wine and hard liquor Patient Tobacco Use Status: Current everyday Tobacco user Tobacco use type: Cigarette Cigarettes Per Day: 5 Years Smoked: 3 e-Cigarette/Vaping Use: Never Used Substance Use Type: Marijuana Current occupational status: employed 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 Sexual orientation: Straight/Heterosexual Gender identity: Female Meds Allergies Allergy/AdvReac Type Severity Reaction Status Date / Time sumatriptan [From IMITREX] Allergy Intermediate VOMITING/DI Verified 02/14/24 14:03 ZZINESS topiramate [Topamax] Allergy Unknown nausea Verified 02/14/24 14:03 SHELLFISH Allergy Severe SWELLING Uncoded 02/14/24 14:03 shellfish Allergy Unknown hives Uncoded 02/14/24 14:03 trees, ragweed, grass Allergy Unknown rash Uncoded 02/14/24 14:03 Active Medications: Current Medications Hydromorphone HCl (Hydromorphone Hcl 0.5 Mg/0.5 Ml Syringe) 0.5 mg IVPUSH Q3H PRN; Protocol PRN Reason: Pain, Severe (Pain Scale 7-10) Last Admin: 02/15/24 03:51 Dose: 0.5 mg Acetaminophen (Ofirmev) 1,000 mg in 100 mls @ 400 mls/hr IV Q6H [facility] Last Infusion: 02/15/24 05:51 Dose: Infused Dextrose/Lactated Ringer's (D5lr) 1,000 mls @ 125 mls/hr IVCONT .Q8H [facility] Last Admin: 02/15/24 03:12 Dose: 125 mls/hr Piperacillin Sod/Tazobactam (Sod 3.375 gm/ Sodium Chloride) 50 mls @ 100 mls/hr IV Q6H [facility] Last Infusion: 02/15/24 06:24 Dose: Infused Ondansetron HCl (Ondansetron Hcl 4 Mg/2 Ml Vial) 4 mg IVPUSH QID PRN PRN Reason: Nausea Sodium Chloride (0.9 % Sodium Chloride Flush 3 Ml Syringe) 3 ml IVFLUSH QSHIFT [facility] Last Admin: 02/15/24 07:59 Dose: Not Given Zolpidem Tartrate (Zolpidem Tartrate 5 Mg Tablet) 5 mg PO BEDTIME PRN PRN Reason: Insomnia Home Medications ?Medication ?Instructions ?Recorded ?Confirmed ?Last Taken ?Type cetirizine 10 mg tablet (Zyrtec) 10 mg PO DAILY PRN Pain 08/20/21 02/14/24 Unknown History acetaminophen 500 mg tablet 1,000 mg PO DAILY PRN Pain 02/14/24 02/14/24 Unknown History Exam Height,Weight and Vital Signs: Height 5 ft 2 in Weight 73.936 kg Last Vital Signs Temp 98.2 F 02/15/24 09:17 Pulse 62 02/15/24 09:17 Resp 18 02/15/24 09:17 BP 122/73 02/15/24 09:17 Pulse Ox 98 02/15/24 09:17 O2 Del Method Room Air 02/15/24 09:17 Pertinent Lab Results Pertinent Lab Results: Laboratory Tests 02/14/24 02/15/24 14:33 05:17 WBC 15.9 H 10.5 RBC 4.40 3.86 L Hgb 13.8 11.8 L Hct 38.3 34.4 L MCV 87.0 89.1 MCH 31.4 30.6 MCHC 36.0 H 34.3 RDW 12.0 12.1 Plt Count 259 221 MPV 10.7 10.9 Immature Gran % (Auto) 0.5 H 0.5 H Neut % (Auto) 80.4 H 68.2 Lymph % (Auto) 12.2 L 21.2 Carter % (Auto) 5.8 7.6 Eos % (Auto) 0.7 2.0 Baso % (Auto) 0.4 0.5 Lymph # (Auto) 2.0 2.2 Carter # (Auto) 0.9 0.8 Eos # (Auto) 0.1 0.2 Baso # (Auto) 0.1 0.1 Abs Immat Gran (auto) 0.08 H 0.05 H Absolute Neuts (auto) 12.8 H 7.2 Absolute Nucleated RBC 0.000 0.000 Nucleated RBC % (auto) 0.0 0.0 Sodium 138 138 Potassium 4.2 D 3.7 Chloride 106 108 Carbon Dioxide 22 22 Anion Gap 14 12 BUN 10 8 L Creatinine 0.61 0.65 Estim Creat Clear Calc 120.0 112.6 Estimated GFR > 60 > 60 Random Glucose 91 117 H Calcium 9.5 8.4 D Total Bilirubin 0.7 Direct Bilirubin 0.2 AST 34 H ALT 35 H Alkaline Phosphatase 103 Total Protein 7.9 Albumin 4.3 Lipase 8 Urine Color Yellow Urine Appearance Clear Urine pH 6.0 Ur Specific [place] 1.015 Urine Protein Negative Urine Glucose (UA) Negative Urine Ketones Negative Urine Blood Trace H Urine Nitrite Negative Ur Leukocyte Esterase Negative Urine RBC 0-2 Urine WBC 0-5 Ur Squamous Epith Cells 3-5 Urine Bacteria 1+ Hyaline Casts 0-2 Urine Test NEGATIVE Airway Mallampati Class: I TM Dist: >3cm Neck ROM: Full Loose/Missing/Broken Teeth: No Heart: RRR Lungs: CTA Assessment and Plan Assessment Anesthesia Assessment: Anesthesia Plan Discussed and Chart Reviewed Final Anesthetic Review Family History of Problems with Anesthesia: No History of Problems with Anesthesia: No NPO: Yes ASA Class: II and Emergency Final Preanesthetic Review: No Changes in Pt Med Stat, Meds/Allgs Chart Reviewed and Consent Obtained/Reviewed Patient Risk: Intermediate Procedure Risk: Intermediate Anesthetic Plan Anesthetic Plan: GA Disposition: Standard PACU
--- NOTE | 2024-02-15 09:58 | PC.NURSE ---
Approx. [id number]- Report given over phone to Joseph TOVAR. [phone]- Patient picked up for transport to surgery. Name band in place with name and verified. IV flushed and patent. Brown non-slip socks in place.
--- NOTE | 2024-02-15 10:57 | P.OP_ITS ---
Operative Note Operative Note Date of Service: 02/15/24 Narrative: Preoperative diagnosis: Acute appendicitis Postoperative diagnosis: Same Procedure: Laparoscopic appendectomy Surgeon: Rocael Santiago MD Manufacturing Management Associate: None Anesthesia: General endotracheal Indications for procedure: 38-year-old female presenting with complaints of abdominal pain over 5 day duration becoming more severe and in the right lower quadrant over the past 24 hours. Patient was found on laboratories to have an elevated WBC. CT abdomen and pelvis revealed a thickened distended appendix with inflammatory changes surrounding suggestive of acute appendicitis. Operative findings: Mildly inflamed appendix with surrounding peritoneal fluid. Peritoneal fluid also noted in the pelvis in the cul-de-sac. Specimen: Appendix Estimated blood loss: Less than 2 mL Complications: None Procedure details: Patient was brought to the OR and placed in a supine position. After administering general anesthesia the patient's abdomen was prepped with ChloraPrep and draped in a sterile fashion. A surgical time-out was called and consent confirmed. Patient received preoperative antibiotics and Venodyne boots were in place. Local anesthesia consisting of 0.75% Sensorcaine with epinephrine was in filtrated in periumbilical region. A 5 mm incision was made below the umbilicus and carried down through subcutaneous tissue. A Veress needle was then inserted while elevating abdominal cavity with towel clips. After a positive drop test the abdomen was insufflated to a pressure of 15 mm of mercury. The Veress needle was removed and a 5 mm trocar inserted. The camera was then inserted in the abdomen explored. A 2nd 5 mm trocars placed in the lower midline. A 12 mm trocar was then placed in the left lower quadrant. The patient was then placed in a Trendelenburg position and rotated to the left. The appendix was identified in the right lower quadrant and brought up using blunt dissecting clamps. The mesentery of the appendix was then divided using the LigaSure. The appendiceal artery was cauterized and divided using the LigaSure. Dissection was continued down to the base of the cecum. An Endo-PERRI stapler with a purple reload was then used to divide the appendix at the base with the cecum. The appendix was then placed in Endo-Catch bag and brought out through the left lower quadrant incision. The abdomen was then irrigated with saline solution and suctioned dry. Wounds were checked for hemostasis. CO2 was then evacuated from the abdominal cavity and all trocars removed. Fascia was closed in the left lower quadrant incision using a [id number] Polysorb suture. Skin was closed at all incisions using a subcuticular 4-0 Polysorb suture. Steri-Strips 2 x 2 gauze and Tegaderm were then applied. The patient tolerated the procedure well. Sponge, instrument, needle counts reported as correct. The patient was transferred to PACU in stable condition.
[2024-02-15] MEDS: fentaNYL citrate/PF 100 MCG/2 ML VIAL 50 MCG IVPUSH (11:20)
[2024-02-15] MEDS: Albuterol Sulfate (0.083%) 2.5 MG/3 ML VIAL.NEB INHALE (11:25)
--- NOTE | 2024-02-15 14:20 | MHC.CM.PN ---
PT IS INDEPENDENT LIVES WITH HER MOTHER SHE HAS A RIDE HOME WHEN DCD PHYSICIAN BOOKLET GIVEN TO PT
[2024-02-15] MEDS: oxyCODONE HCl Immed Release 5 MG TABLET PO ×2 (15:42→23:07)
[2024-02-15] MEDS: ondansetron HCL 4 MG/2 ML VIAL IVPUSH (17:40)
--- NOTE | 2024-02-15 17:45 | PC.NURSE ---
Pt c/o chest pain, nausea, VSS, MD notified, Order for Hospitalist Consult. MD Khan notified to come see patient by Primary RN Amadeo. Ann given per eMAR.
--- NOTE | 2024-02-15 17:51 | P.HPHOSP_ITS ---
History of Present Illness Date of Service: 02/15/24 Chief Complaint: chest pain 38yo F with asthma admitted to Surg service for acute appendicitis and underwent uncomplicated laparoscopic appendectomy today. Now complaining of R-sided chest pain worse with pressing on her chest. Non-exertional, not provoked by activity, sharp rather than pressure in quality, non-radiating. Not associated with dyspnea, diaphoresis, or coughing. Not vomiting but feels quite nauseous. No recent trauma or heavy exertion. Review of Systems 2 Review of Systems: Yes all other systems are reviewed and are negative [facility] Medical History Asthma Family History Father HTN (hypertension) Diabetes Mother HTN (hypertension) Diabetes Paternal Aunt Breast cancer Paternal Aunt Ovarian cancer Paternal Uncle Colon cancer Surgical History H/O tubal ligation Social History Household Members: Children Housing: Apartment Do you presently have visiting nurse or other home services: No Alcohol intake: current Alcohol intake frequency: holidays/special occasions only Alcohol type: beer, wine and hard liquor Patient Tobacco Use Status: Current everyday Tobacco user Tobacco use type: Cigarette Cigarettes Per Day: 5 Years Smoked: 3 e-Cigarette/Vaping Use: Never Used Substance Use Type: Marijuana service: No Current occupational status: employed 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 Sexual orientation: Straight/Heterosexual Gender identity: Female Meds Allergies Allergy/AdvReac Type Severity Reaction Status Date / Time sumatriptan [From IMITREX] Allergy Intermediate VOMITING/DI Verified 02/14/24 14:03 ZZINESS topiramate [Topamax] Allergy Unknown nausea Verified 02/14/24 14:03 SHELLFISH Allergy Severe SWELLING Uncoded 02/14/24 14:03 shellfish Allergy Unknown hives Uncoded 02/14/24 14:03 trees, ragweed, grass Allergy Unknown rash Uncoded 02/14/24 14:03 Active Medications: Current Medications Hydromorphone HCl (Hydromorphone Hcl 0.5 Mg/0.5 Ml Syringe) 0.5 mg IVPUSH Q3H PRN; Protocol PRN Reason: Pain, Severe (Pain Scale 7-10) Last Admin: 02/15/24 03:51 Dose: 0.5 mg Dextrose/Lactated Ringer's (D5lr) 1,000 mls @ 125 mls/hr IVCONT .Q8H [facility] Last Admin: 02/15/24 14:01 Dose: 125 mls/hr Acetaminophen (Ofirmev) 1,000 mg in 100 mls @ 400 mls/hr IV Q6H [facility] Stop: 02/16/24 06:04 Last Infusion: 02/15/24 12:41 Dose: Infused Ondansetron HCl (Ondansetron Hcl 4 Mg/2 Ml Vial) 4 mg IVPUSH QID PRN PRN Reason: Nausea Last Admin: 02/15/24 17:40 Dose: 4 mg Oxycodone HCl (Oxycodone Hcl Immed Release 5 Mg Tablet) 5 mg PO Q6H PRN PRN Reason: Pain, Moderate(Pain Scale 4-6) Last Admin: 02/15/24 15:42 Dose: 5 mg Sodium Chloride (0.9 % Sodium Chloride Flush 3 Ml Syringe) [facility] Last Admin: 02/15/24 15:25 Dose: Not Given Zolpidem Tartrate (Zolpidem Tartrate 5 Mg Tablet) 5 mg PO BEDTIME PRN PRN Reason: Insomnia Home Medications ?Medication ?Instructions ?Recorded ?Confirmed ?Last Taken ?Type cetirizine 10 mg tablet (Zyrtec) 10 mg PO DAILY PRN Pain 08/20/21 02/14/24 Unknown History acetaminophen 500 mg tablet 1,000 mg PO DAILY PRN Pain 02/14/24 02/14/24 Unknown History Physical Exam 2 Vital Signs and Narrative: Vital Signs: Last Vital Signs Temp 98.8 F 02/15/24 17:45 Pulse 78 02/15/24 17:45 Resp 16 02/15/24 17:45 BP 133/80 02/15/24 17:45 Pulse Ox 96 02/15/24 17:45 O2 Del Method Room Air 02/15/24 17:45 O2 Flow Rate 3 02/15/24 10:58 BMI result Body Mass Index 29.8 Gen: in no acute distress HEENT: sclera anicteric, moist mucus membranes Neck: supple Lungs: clear to auscultation bilaterally Heart: regular rate and rhythm, no murmurs. Chest wall markedly tender with palpation R mid-costosternal junction Abd: soft, non-tender, non-distended Ext: no edema Skin: warm/well-perfused Neuro: alert and oriented x3, no focal findings Psych: appropriate affect Results Labs 02/15/24 05:17 02/15/24 05:17 Labs: Laboratory Results - last 24 hr 02/15/24 05:17 MCV 89.1 MCH 30.6 MCHC 34.3 RDW 12.1 Plt Count 221 MPV 10.9 Immature Gran % (Auto) 0.5 H Neut % (Auto) 68.2 Lymph % (Auto) 21.2 [place] % (Auto) 7.6 Eos % (Auto) 2.0 Baso % (Auto) 0.5 Lymph # (Auto) 2.2 [place] # (Auto) 0.8 Eos # (Auto) 0.2 Baso # (Auto) 0.1 Abs Immat Gran (auto) 0.05 H Absolute Neuts (auto) 7.2 Absolute Nucleated RBC 0.000 Nucleated RBC % (auto) 0.0 Anion Gap 12 Estim Creat Clear Calc 112.6 Estimated GFR > 60 Random Glucose 117 H Calcium 8.4 D Assessment and Plan (1) Musculoskeletal chest pain: Status: Acute Plan 38yo F with asthma POD0 lap appy for acute appendicitis, developed acute R-sided chest pain which is clearly musculoskeletal in nature costochondritis - lidocaine patch; otherwise continue APAP, oxycodone + hydromorphone as ordered for postop pain control Thank you for this consultation. We are signing off the case at this time. Please communicate with us if any new medical questions arise. Quality Stroke Does the patient have a stroke diagnosis?: No VTE Prior VTE?: No VTE Risk Level:: Surgical - low VTE Device Contraindication: N/A - Device Ordered VTE Drug Contraindication: Treatment Not Indicated
[2024-02-15] MEDS: Lidocaine 4 % Patch ADH..PATCH 1 PATCH TRANSDERMA (18:03)
--- NOTE | 2024-02-15 18:09 | PC.NURSE ---
1730- patient complaining of 9/10 right sided chest pain towards ribs. C/o nausea and dry heaves. VSS. Dr. Santiago notified. Hospitalist consult placed. Janetfran administered. Dr. Khan arrived to bedside and performed assessment. No dyspnea or signs of distress. Patient medicated for pain per Dr. Khan. See MAR and Hospitalist H&P for details.
[2024-02-15] MEDS: 0.9 % Sodium Chloride Flush 3 ML SYRINGE IVFLUSH (20:31)
[2024-02-16] VITALS (7 sets, daily range): BP systolic 118–135; BP diastolic 60–76; PULSE 53–86; RESP 16–20; TEMP 36.3–37; O2SAT 93–97
[2024-02-16] MEDS: Dextrose 5 % and Lactated Ring 1,000 ML 125 ML IVCONT (05:26)
[2024-02-16] MEDS: HYDROmorphone HCl 0.5 MG/0.5 ML SYRINGE IVPUSH ×2 (05:30→10:29)
[2024-02-16] MEDS: Acetaminophen 1,000 MG/100 ML PIGGYBACK 400 MG IV (05:30)
[2024-02-16 06:30] LABS: MANUAL DIFF FLAG NO
[2024-02-16 06:34] LABS: Basophils Percent Auto 0.2 % (0-2); Eosinophils Percent Auto 0.2 % (0-4); Hemoglobin 11.6 g/dl (12.0-16.0); Imm Gran Abs Auto 0.04 X10*3/uL (0.00-0.03); Imm Gran Pct Auto 0.3 % (0.0-0.4); Lymphocytes Absolute Auto 1.9 X10*3/uL (1.2-4.9); Lymphocytes Percent Auto 15.8 % (20-40); Mean Corpuscular HGB Conc 34.1 g/dl (31.0-35.0); Mean Corpuscular Hemoglobin 30.9 pg (27.0-33.0); Mean Corpuscular Volume 90.7 fL (80.0-98.0); Mean Platelet Volume 11.2 fL (9.4-12.3); Monocytes Absolute Auto 0.7 X10*3/uL (0.1-1.2); Monocytes Percent Auto 5.7 % (2-11); Neutrophils Absolute Auto 9.6 x10*3/uL (2.0-8.3); Neutrophils Percent Auto 77.8 % (45-73); Platelet Count 261 X10*3/uL (160-400); Red Blood Count 3.75 X10*6/uL (4.20-5.50); White Blood Count 12.3 X10*3/uL (4.8-10.8)
[2024-02-16] MEDS: oxyCODONE HCl Immed Release 5 MG TABLET PO ×3 (08:05→22:09)
[2024-02-16] MEDS: Lidocaine 4 % Patch ADH..PATCH 1 PATCH TRANSDERMA (08:05)
[2024-02-16] MEDS: 0.9 % Sodium Chloride Flush 3 ML SYRINGE IVFLUSH ×3 (08:06→23:48)
--- NOTE | 2024-02-16 08:23 | P.PNGS_ITS ---
Subjective Subjective Date of Service: 02/16/24 <Lisa Feliciano PA-C - Last Filed: 02/16/24 08:26> 02/16/24 <Rocael Santiago MD - Last Filed: 02/16/24 09:31> Interval history: Feels ok this morning, c/o pain at incision sites. Had some nausea last night and did not have much to eat. Per RN, has not voided since 11pm. < Lisa Feliciano PA-C - Last Filed: 02/16/24 08:26> Physical Exam 2 Vital Signs: Vital Signs: Last Vital Signs Temp 98.3 F 02/16/24 07:27 Pulse 63 02/16/24 07:27 Resp 16 02/16/24 07:27 BP 130/74 02/16/24 07:27 Pulse Ox 97 02/16/24 07:27 O2 Del Method Room Air 02/16/24 07:27 O2 Flow Rate 3 02/15/24 10:58 BMI result Body Mass Index 29.8 <Lisa Feliciano PA-C - Last Filed: 02/16/24 08:26> Const: General: comfortable, no acute distress and alert <Lisa Feliciano PA-C - Last Filed: 02/16/24 08:26> Orientation/consciousness: patient oriented x3 <Lisa Feliciano PA-C - Last Filed: 02/16/24 08:26> Resp: Effort & Inspection: normal respiratory effort <Lisa Feliciano PA-C - Last Filed: 02/16/24 08:26> GI: Inspection: No distended and Yes incision (dressings clean and intact) <Lisa Feliciano PA-C - Last Filed: 02/16/24 08:26> Palpation (GI): Soft to palpation, Tenderness to palpation present (GI) (mild incisional) and no guarding <HILDA Garber Last Filed: 02/16/24 08:26> Skin: General skin exam: no rashes or lesions noted <HILDA Garber Last Filed: 02/16/24 08:26> Neuro: General: patient oriented x3 and moves all extremities <Lisa Feliciano PA-C - Last Filed: 02/16/24 08:26> Objective Data Active Medications Hydromorphone HCl (Hydromorphone Hcl 0.5 Mg/0.5 Ml Syringe) 0.5 mg IVPUSH Q3H PRN; Protocol PRN Reason: Pain, Severe (Pain Scale 7-10) Last Admin: 02/16/24 05:30 Dose: 0.5 mg Documented By: EUFEMIA Dextrose/Lactated Ringer's (D5lr) 1,000 mls @ 125 mls/hr IVCONT .Q8H [facility] Last Admin: 02/16/24 05:26 Dose: 125 mls/hr Documented By: EUFEMIA Lidocaine (Lidocaine 4 % Patch Adh..Patch) 1 patch TRANSDERMA DAILY [facility]; Protocol Last Admin: 02/16/24 08:05 Dose: 1 patch Documented By: REBA Ondansetron HCl (Ondansetron Hcl 4 Mg/2 Ml Vial) 4 mg IVPUSH QID PRN PRN Reason: Nausea Last Admin: 02/15/24 17:40 Dose: 4 mg Documented By: BERENICE Oxycodone HCl (Oxycodone Hcl Immed Release 5 Mg Tablet) 5 mg PO Q6H PRN PRN Reason: Pain, Moderate(Pain Scale 4-6) Last Admin: 02/16/24 08:05 Dose: 5 mg Documented By: REBA Sodium Chloride (0.9 % Sodium Chloride Flush 3 Ml Syringe) [facility] Last Admin: 02/16/24 08:06 Dose: 3 ml Documented By: REBA Zolpidem Tartrate (Zolpidem Tartrate 5 Mg Tablet) 5 mg PO BEDTIME PRN PRN Reason: Insomnia <Lisa Feliciano PA-C - Last Filed: 02/16/24 08:26> Labs CBC & Chem 7: 02/16/24 05:11 02/15/24 05:17 <Lisa Feliciano PA-C - Last Filed: 02/16/24 08:26> Labs: Laboratory Results - last 24 hr 02/16/24 05:11 MCV 90.7 MCH 30.9 MCHC 34.1 RDW 12.0 Plt Count 261 MPV 11.2 Immature Gran % (Auto) 0.3 Neut % (Auto) 77.8 H Lymph % (Auto) 15.8 L [place] % (Auto) 5.7 Eos % (Auto) 0.2 Baso % (Auto) 0.2 Lymph # (Auto) 1.9 [place] # (Auto) 0.7 Eos # (Auto) 0.0 Baso # (Auto) 0.0 Abs Immat Gran (auto) 0.04 H Absolute Neuts (auto) 9.6 H Absolute Nucleated RBC 0.000 Nucleated RBC % (auto) 0.0 <Lisa Feliciano PA-C - Last Filed: 02/16/24 08:26> Procedures Date of Service Date of Service: 02/16/24 <Lisa Feliciano PA-C - Last Filed: 02/16/24 08:26> 02/16/24 <Rocael Santiago MD - Last Filed: 02/16/24 09:31> Progress Note: A&P Assessment and plan (1) Acute appendicitis: Status: Acute <Lisa Feliciano PA-C - Last Filed: 02/16/24 08:26> (2) S/P laparoscopic appendectomy: Status: Acute <Lisa Feliciano PA-C - Last Filed: 02/16/24 08:26> Assessment and Plan: POD #1 s/p lap appy. Doing well post op. VSS. Abd exam benign with clean/intact dressings, appropriate post op tenderness. Discussed with RN to ambulate patient to bathroom and attempt to void. If unable, bladder scan and straight cath if needed. Will reassess later this morning, if tolerating solid diet, ambulating and voiding without difficulty, patient ready for discharge to home today. Patient understands and is comfortable with plan. <Lisa Feliciano PA-C - Last Filed: 02/16/24 08:26> POD #1 s/p lap appy. Doing well post op. VSS. Abd exam benign with clean/intact dressings, appropriate post op tenderness. Discussed with RN to ambulate patient to bathroom and attempt to void. If unable, bladder scan and straight cath if needed. Will reassess later this morning, if tolerating solid diet, ambulating and voiding without difficulty, patient ready for discharge to home today. Patient understands and is comfortable with plan. Patient seen and examined and I agree with the above assessment and plan. < Rocael Santiago MD - Last Filed: 02/16/24 09:31> Time Spent With Patient Time: Total time managing care of this patient today ____ minutes. <Lisa Feliciano PA-C - Last Filed: 02/16/24 08:26> Quality Stroke Does the patient have a stroke diagnosis?: No <Lisa Feliciano PA-C - Last Filed: 02/16/24 08:26> VTE Prior VTE?: No <Lisa Feliciano PA-C - Last Filed: 02/16/24 08:26> VTE Risk Level:: Surgical - low <Lisa Feliciano PA-C - Last Filed: 02/16/24 08:26> VTE Device Contraindication: N/A - Device Ordered <Lisa Feliciano PA-C - Last Filed: 02/16/24 08:26> VTE Drug Contraindication: Treatment Not Indicated <Lisa Feliciano PA-C - Last Filed: 02/16/24 08:26>
[2024-02-16] MEDS: ondansetron HCL 4 MG/2 ML VIAL IVPUSH ×2 (08:43→17:15)
[2024-02-16] MEDS: Acetaminophen 325 MG TABLET 650 MG PO ×3 (11:32→23:47)
[2024-02-16] MEDS: Ketorolac Tromethamine 30 MG/ML VIAL IVPUSH ×3 (11:32→23:48)
[2024-02-17 03:54] VITALS: BP 118/60; PULSE 74; RESP 20; TEMP 36.7; O2SAT 93
[2024-02-17] MEDS: Ketorolac Tromethamine 30 MG/ML VIAL IVPUSH ×4 (05:20→22:06)
[2024-02-17] MEDS: Acetaminophen 325 MG TABLET 650 MG PO ×4 (05:20→22:06)
[2024-02-17] MEDS: ondansetron HCL 4 MG/2 ML VIAL IVPUSH (05:26)
[2024-02-17 07:20] VITALS: BP 128/80; PULSE 58; RESP 16; TEMP 36.7; O2SAT 93
[2024-02-17] MEDS: Lidocaine 4 % Patch ADH..PATCH 1 PATCH TRANSDERMA (07:52)
[2024-02-17] MEDS: 0.9 % Sodium Chloride Flush 3 ML SYRINGE IVFLUSH ×3 (07:55→22:06)
[2024-02-17] MEDS: oxyCODONE HCl Immed Release 5 MG TABLET PO ×2 (08:00→19:53)
--- NOTE | 2024-02-17 08:05 | P.PNGS_ITS ---
Subjective Subjective Date of Service: 02/17/24 <Lisa Feliciano PA-C - Last Filed: 02/17/24 08:08> 02/17/24 <Rocael Santiago MD - Last Filed: 02/17/24 10:17> Interval history: Still feels so,so but overall better. Has not really been OOB and ambulating yet. Oral intake has been minimal. Still c/o pain at incision sites. <Lisa Feliciano PA-C - Last Filed: 02/17/24 08:08> Physical Exam 2 Vital Signs: Vital Signs: Last Vital Signs Temp 98.1 F 02/17/24 07:20 Pulse 58 02/17/24 07:20 Resp 16 02/17/24 07:20 BP 128/80 02/17/24 07:20 Pulse Ox 93 02/17/24 07:20 O2 Del Method Room Air 02/17/24 07:20 O2 Flow Rate 3 02/15/24 10:58 BMI result Body Mass Index 29.8 <Lisa Feliciano PA-C - Last Filed: 02/17/24 08:08> Const: General: comfortable, no acute distress and alert <Lisa Feliciano PA-C - Last Filed: 02/17/24 08:08> Orientation/consciousness: patient oriented x3 <Lisa Feliciano PA-C - Last Filed: 02/17/24 08:08> Resp: Effort & Inspection: normal respiratory effort <HILDA Garber Last Filed: 02/17/24 08:08> GI: Inspection: No distended and Yes incision (dressings intact) <Lisa Feliciano PA-C - Last Filed: 02/17/24 08:08> Palpation (GI): Soft to palpation, Tenderness to palpation present (GI) (mild incisional) and no guarding <HILDA Garber Last Filed: 02/17/24 08:08> Skin: General skin exam: no rashes or lesions noted <HILDA Garber Last Filed: 02/17/24 08:08> Neuro: General: patient oriented x3 and moves all extremities <HILDA Garber Filed: 02/17/24 08:08> Objective Data Active Medications Acetaminophen (Acetaminophen 325 Mg Tablet) 650 mg PO Q6H [facility] Last Admin: 02/17/24 05:20 Dose: 650 mg Documented By: ANTSHAHEED Hydromorphone HCl (Hydromorphone Hcl 0.5 Mg/0.5 Ml Syringe) 0.5 mg IVPUSH Q3H PRN; Protocol PRN Reason: Pain, Severe (Pain Scale 7-10) Last Admin: 02/16/24 10:29 Dose: 0.5 mg Documented By: PEPEME Ketorolac Tromethamine (Ketorolac Tromethamine 30 Mg/Ml Vial) 30 mg IVPUSH Q6H [facility] Last Admin: 02/17/24 05:20 Dose: 30 mg Documented By: SABI Lidocaine (Lidocaine 4 % Patch Adh..Patch) 1 patch TRANSDERMA DAILY [facility]; Protocol Last Admin: 02/17/24 07:52 Dose: 1 patch Documented By: RONNIE Ondansetron HCl (Ondansetron Hcl 4 Mg/2 Ml Vial) 4 mg IVPUSH QID PRN PRN Reason: Nausea Last Admin: 02/17/24 05:26 Dose: 4 mg Documented By: SABI Oxycodone HCl (Oxycodone Hcl Immed Release 5 Mg Tablet) 5 mg PO Q6H PRN PRN Reason: Pain, Moderate(Pain Scale 4-6) Last Admin: 02/17/24 08:00 Dose: 5 mg Documented By: RONNIE Sodium Chloride (0.9 % Sodium Chloride Flush 3 Ml Syringe) [facility] Last Admin: 02/17/24 07:55 Dose: 3 ml Documented By: RONNIE Zolpidem Tartrate (Zolpidem Tartrate 5 Mg Tablet) 5 mg PO BEDTIME PRN PRN Reason: Insomnia <Lisa Feliciano PA-C - Last Filed: 02/17/24 08:08> Labs CBC & Chem 7: 02/16/24 05:11 02/15/24 05:17 <Lisa Feliciano PA-C - Last Filed: 02/17/24 08:08> Procedures Date of Service Date of Service: 02/17/24 <Lisa Feliciano PA-C - Last Filed: 02/17/24 08:08> 02/17/24 <Rocael Santiago MD - Last Filed: 02/17/24 10:17> Progress Note: A&P Assessment and plan (1) S/P laparoscopic appendectomy: Status: Acute <Lisa Feliciano PA-C - Last Filed: 02/17/24 08:08> Assessment and Plan: POD #2 s/p lap appy. No acute post op issues but activity and oral intake has been limited. VSS. Nontoxic appearing, abd benign with mild appropriate post op tenderness. Encouraged OOB and importance of ambulation of halls and incentive spirometer use 10x/hr. Will reassess after breakfast, if comfortable and ambulating without difficulty, stable for dc to home. Patient comfortable with plan. <Lisa Feliciano PA-C - Last Filed: 02/17/24 08:08> Time Spent With Patient Time: Total time managing care of this patient today ____ minutes. <Lisa Feliciano PA-C - Last Filed: 02/17/24 08:08> Quality Stroke Does the patient have a stroke diagnosis?: No <Lisa Feliciano PA-C - Last Filed: 02/17/24 08:08> VTE Prior VTE?: No <Lisa Feliciano PA-C - Last Filed: 02/17/24 08:08> VTE Risk Level:: Surgical - low <Lisa Feliciano PA-C - Last Filed: 02/17/24 08:08> VTE Device Contraindication: N/A - Device Ordered <Lisa Feliciano PA-C - Last Filed: 02/17/24 08:08> VTE Drug Contraindication: Treatment Not Indicated <Lisa Feliciano PA-C - Last Filed: 02/17/24 08:08>
--- NOTE | 2024-02-17 09:50 | HO.POSTANES ---
Post Anesthesia Evaluation Post Anesthesia Evaluation Date of Service: 02/17/24 Vital Signs: Vital Signs Temp Pulse Resp BP Pulse Ox O2 Del Method 02/17/24 07:20 98.1 F 58 16 128/80 93 Room Air 02/17/24 03:54 98.0 F 74 20 118/60 93 Room Air 02/16/24 23:32 98.3 F 86 18 126/62 97 Room Air Anesthesia: General Endotracheal-GETA Mental Status: Awake Pain Control: Satisfactory Nausea/Vomiting: None Hydration: Adequate Anesthesia-Related Issues: No Anes. Related Issues
[2024-02-17 12:00] VITALS: BP 130/82; PULSE 52; RESP 16; TEMP 36.8; O2SAT 96
[2024-02-17 15:47] VITALS: BP 156/94; PULSE 67; RESP 16; TEMP 37; O2SAT 96
[2024-02-17 19:25] VITALS: BP 104/71; PULSE 55; RESP 18; TEMP 36.4; O2SAT 93
[2024-02-18 04:00] VITALS: BP 116/82; PULSE 56; RESP 18; TEMP 36.6; O2SAT 94
[2024-02-18] MEDS: Acetaminophen 325 MG TABLET 650 MG PO (05:53)
[2024-02-18] MEDS: Ketorolac Tromethamine 30 MG/ML VIAL IVPUSH (05:54)
[2024-02-18 07:07] VITALS: BP 136/76; PULSE 59; RESP 14; TEMP 36.6; O2SAT 95
--- NOTE | 2024-02-18 08:35 | PM.PNGS ---
Subjective Subjective Date of Service: 02/18/24 Interval history: Feels significantly improved this morning, much less abd pain. Able to ambulate without difficulty. Wants to go home. Physical Exam Vital Signs: Vital Signs: Last Vital Signs Temp 97.9 F 02/18/24 07:07 Pulse 59 02/18/24 07:07 Resp 14 02/18/24 07:07 BP 136/76 02/18/24 07:07 Pulse Ox 95 02/18/24 07:07 O2 Del Method Room Air 02/18/24 07:07 O2 Flow Rate 3 02/15/24 10:58 BMI result Body Mass Index 29.8 Const: General: comfortable, no acute distress and alert Orientation/consciousness: patient oriented x3 Resp: Effort & Inspection: normal respiratory effort GI: Inspection: No distended and Yes incision (clean) Palpation (GI): Soft to palpation, Tenderness to palpation present (GI) (mild incisional) and no guarding Skin: General skin exam: no rashes or lesions noted Neuro: General: patient oriented x3 and moves all extremities Objective Data Active Medications Acetaminophen (Acetaminophen 325 Mg Tablet) 650 mg PO Q6H [facility] Last Admin: 02/18/24 05:53 Dose: 650 mg Documented By: JAMES Hydromorphone HCl (Hydromorphone Hcl 0.5 Mg/0.5 Ml Syringe) 0.5 mg IVPUSH Q3H PRN; Protocol PRN Reason: Pain, Severe (Pain Scale 7-10) Last Admin: 02/16/24 10:29 Dose: 0.5 mg Documented By: REBA Ketorolac Tromethamine (Ketorolac Tromethamine 30 Mg/Ml Vial) 30 mg IVPUSH Q6H [facility] Last Admin: 02/18/24 05:54 Dose: 30 mg Documented By: JAMES Lidocaine (Lidocaine 4 % Patch Adh..Patch) 1 patch TRANSDERMA DAILY [facility]; Protocol Last Admin: 02/17/24 07:52 Dose: 1 patch Documented By: RONNIE Ondansetron HCl (Ondansetron Hcl 4 Mg/2 Ml Vial) 4 mg IVPUSH QID PRN PRN Reason: Nausea Last Admin: 02/17/24 05:26 Dose: 4 mg Documented By: ANTOIC Oxycodone HCl (Oxycodone Hcl Immed Release 5 Mg Tablet) 5 mg PO Q6H PRN PRN Reason: Pain, Moderate(Pain Scale 4-6) Last Admin: 02/17/24 19:53 Dose: 5 mg Documented By: SAVI Sodium Chloride (0.9 % Sodium Chloride Flush 3 Ml Syringe) 3 ml IVFLUSH QSHIFT [facility] Last Admin: 02/17/24 22:06 Dose: 3 ml Documented By: SAVI Zolpidem Tartrate (Zolpidem Tartrate 5 Mg Tablet) 5 mg PO BEDTIME PRN PRN Reason: Insomnia Labs 02/16/24 05:11 02/15/24 05:17 Procedures Date of Service Date of Service: 02/18/24 Progress Note: A&P Assessment and plan (1) S/P laparoscopic appendectomy: Status: Acute Plan POD #3 s/p lap appy. Doing well today with good pain control, ambulating without difficulty. VSS. Abd exam benign with clean incisions. Stable for dc to home today. F/u in office in 1 week. patient comfortable with plan. Time Spent With Patient Time: Total time managing care of this patient today ____ minutes. Quality Stroke Does the patient have a stroke diagnosis?: No VTE Prior VTE?: No VTE Risk Level:: Surgical - low VTE Device Contraindication: N/A - Device Ordered VTE Drug Contraindication: Treatment Not Indicated
[2024-02-18] MEDS: oxyCODONE HCl Immed Release 5 MG TABLET PO (08:53)
--- NOTE | 2024-02-18 09:05 | MHC.CM.PN ---
pt dcd home self care
--- NOTE | 2024-02-18 10:25 | P.DS_ITS ---
DS: Providers Provider Date of Service: 02/18/24 Date of admission: 02/14/24 17:01 Date of discharge: 02/18/24 Primary care physician: Юлия Brizuela MD Attending physician on admission: Rocael Santiago Consults: 02/15/24 17:42 Consult to Hospitalist Stat Comment: Consulting Provider[place] [facility] Reason For Exam: Patient c/o Chest Pain Attending physician on discharge: Rocael Santiago DS: Diagnosis Discharge Diagnosis (1) S/P laparoscopic appendectomy: Status: Acute DS: Summary Hospital Course Hospital Course: HPI AT ADMISSION: Janneth Colunga is a 38 year old female presenting with complaints of right lower abdominal pain which has waxed and waned over a 5 day period, now increased in severity. The pain initially began in the epigastrium and periumbilical region but gradually radiated to the right lower quadrant. She also notes pain extending into the right leg. The pain seems to increase with movement. She was initially nauseous with decreased appetite but currently reports being hungry. The pain varies between 5 to 8/10 in severity. She denies a previous history of similar symptoms. She subsequently presented to the emergency department was noted to have an elevated WBC. CT abdomen and pelvis revealed a dilated, thickened and inflamed appendix which appears to be in a retrocecal location. HOSPITAL COURSE: The patient was admitted to the surgical service for further treatment of the acute appendicitis. She elected to proceed with laparoscopic appendectomy. She was added onto the OR schedule for that day. On 02/15/24, a laparoscopic appendectomy was performed by Dr. Santiago without complication. The patient tolerated the procedure well. She had an uncomplicated recovery course. She remained inpatient for 3 days post operatively for pain control. On POD #3, she felt well and was tolerating a solid diet without nausea or vomiting, had good pain control and was ambulating without difficulty. She was hemodynamically stable. Her abdomen was benign with appropriate post op tenderness and clean and intact dressings. She felt ready for discharge. She was discharged to home on 02/18/24 in stable condition. She is to follow up in the office in 1 week. Status at Discharge Functional status at discharge: independent ambulation Overall status at discharge: patient is progressing back to baseline Time Attestation Discharge Coordination Time (in mins): 35 Quality: Safe Use of Opioids Does Pt have an Active Cancer Diagnosis on the Problem List?: No Quality: Stroke Does the patient have a stroke diagnosis?: No Physical Exam Vital Signs: Vital Signs: Last Vital Signs Temp 97.9 F 02/18/24 07:07 Pulse 59 02/18/24 07:07 Resp 14 02/18/24 07:07 BP 136/76 02/18/24 07:07 Pulse Ox 95 02/18/24 07:07 O2 Del Method Room Air 02/18/24 07:07 O2 Flow Rate 3 02/15/24 10:58 BMI result Body Mass Index 29.8 Const: General: comfortable, no acute distress and alert Orientation/consciousness: patient oriented x3 Resp: Effort & Inspection: normal respiratory effort GI: Inspection: No distended and Yes incision (clean) Palpation (GI): Soft to palpation and no guarding Neuro: General: patient oriented x3 and moves all extremities DS: Data Data Completed and Pending Completed studies during hospitalization [Text1]: 02/15/24 10:27 Surgical [PTH] Routine Vermiform appendix, appendectomy: Vermiform appendix with focal acute inflammation and chronic inflammatory changes Discharge Plan Discharge Anticipated Discharge Date/Time: 02/16/24 07:09 Patient Disposition: Home, Self-Care Discharge Diagnosis: acute appendicitis s/p laparoscopic appendectomy Referrals: Rocael Santiago MD [Physician] - 1 Week Юлия Werner MD [Primary Care Provider] - 1 Week Discharge Medications: New docusate sodium [Colace] 100 mg capsule 100 mg PO BID Qty: 30 0RF oxycodone 5 mg tablet 5 mg PO Q4H PRN (Reason: pain (scale score 7-10)) Qty: 24 0RF Rx Instructions: Partial Fill upon patient request. Continued acetaminophen 500 mg Tablet 1,000 mg PO DAILY PRN (Reason: Pain) cetirizine [Zyrtec] 10 mg tablet 10 mg PO DAILY PRN (Reason: Pain) Discharge Orders: Discharge Order (Routine); Ordered 02/18/24 Ordered By: Lisa Feliciano Diet: Advance to usual diet Activity on Discharge: No heavy lifting Stand Alone Forms: Patient Portal Discharge page, Work/School Release Print Language: Luxembourgish Activity Restrictions/Additional Instructions: If the incision area is tender, you may apply an ice pack for short intervals (No more than 20 minutes on, followed by at least 20 minutes off). Do not apply heat. Do not use creams, lotions, or topical antibiotics. Ok to shower. Remove clear dressings 3 days following your procedure. You have steri strips (small white cloth strips) covering your incision- these will fall off ~1 week. No heavy lifting (>10lbs) or strenuous activity! Take Tylenol Extra-strength 1-2 tabs every 6 hours for the first day, then as needed. Oxycodone every 6-8 hours as needed for pain. Colace 100 mg every day as needed for constipation. Follow up in office with Dr. Santiago in 1 week. ([phone]) Call Your Doctor If: -Your temperature exceeds 101.5? F -You experience excessive pain or swelling -You have an unexpected reaction to medication -You have excessive bleeding -You experience continued vomiting/nausea -Your incision begins to separate -Your incision shows signs of infection such as increased redness, swelling, excessive pain, drainage (light blood or clear fluid is normal) or heat Care Plan Goals: Return to baseline health and resume normal activities following recovery period. Health Concerns: acute appendicitis Plan of Treatment: s/p laparoscopic appendectomy f/u in office in 1 week Assessment: Doing well post op. Discharge Date/Time: 02/18/24 09:50
== END 2024-02-18 09:50 | disposition home or self-care (01) | DRG 234 ==
LOC: HO.ED 16:58 → HO.EDOVER 17:12 → HO.S3 02-15 07:44
PROVIDERS: Nurse Practitioner Family; Admitting Provider Surgery; Emergency Provider Emergency Medicine; PCP Internal Medicine; Visit Provider Surgery
PROC: 0DTJ4ZZ Resection of Appendix, Percutaneous Endoscopic Approach (ICD-10-PCS; CPT 44970; principal; 2024-02-15 09:30)
DX: K35.30 Acute appendicitis with localized peritonitis, without perforation or gangrene (principal); F17.210 Nicotine dependence, cigarettes, uncomplicated; M94.0 Chondrocostal junction syndrome [Tietze]; Z71.6 Tobacco abuse counseling; Z79.899 Other long term (current) drug therapy
CPT/HCPCS: 36415; 74177; 80048; 80076; 81001; 81025; 83690; 85025; 88304; 99285; J0131; J1100; J1171; J1885; J2003; J2405; J2543; J2704; J2795; J3010; Q9967

== ENCOUNTER → 2024-02-14 17:01 | Outpatient (BNV) | payer MEDICAID, SELFPAY | PROVIDERS: Admitting Provider Surgery; Emergency Provider Emergency Medicine; PCP Internal Medicine; Visit Provider Family Medicine | DX: R07.89 Other chest pain (principal) | CPT/HCPCS: 99223 ==

== ENCOUNTER → 2024-02-14 17:01 | Outpatient (BNV) | payer MEDICAID, SELFPAY | PROVIDERS: Admitting Provider Surgery; Emergency Provider Emergency Medicine; PCP Internal Medicine; Visit Provider Surgery | DX: K35.30 Acute appendicitis with localized peritonitis, without perforation or gangrene (principal) | CPT/HCPCS: 44970; 99222 ==

== ENCOUNTER 2024-02-26 09:54 | Outpatient (AMB) | payer MEDICAID, SELFPAY ==
--- NOTE | 2024-02-26 10:19 | MHC.PC.OV ---
Vital Signs 02/26/24 10:21 Height 5 ft 2 in Weight 169 lb BMI 30.9 BP 140/90 H Blood Pressure Location Lt brachial Position Sitting Pulse 55 Pulse Source Pulse Oximeter Pulse Oximetry (%) 98 Oxygen Delivery Method Room Air Intake Visit Reasons: [facility] [place] 02/17 appendicitis Intake Note: Patient is here to follow-up after a visit the emergency department at [facility] [place] on 02/14. Risk And Insurance Manager Required: No Marketing Trainee: Not Required per policy Accompanied by: Self / Same As Patient Allergies sumatriptan [From IMITREX] Allergy (Intermediate, Verified 02/26/24 10:20) VOMITING/DIZZINESS topiramate [Topamax] Allergy (Unknown, Verified 02/26/24 10:20) nausea SHELLFISH Allergy (Severe, Uncoded 02/26/24 10:20) SWELLING shellfish Allergy (Unknown, Uncoded 02/14/24 14:03) hives trees, ragweed, grass Allergy (Unknown, Uncoded 02/26/24 10:20) rash Tobacco use date assessed: 02/26/24 Dental Screening Dental Screen Date: 02/26/24 Did you have a dental visit in the last 12 months?: Yes Did you have a dental problem in the last 6 months where you did not have access to dental care?: No Was dental information given to patient?: Patient has dentist [facility] Medical History (Updated 02/26/24 @ 11:16 by Chris Blanca MD) Essential hypertension Asthma Surgical History History of laparoscopic appendectomy (02/15/24) H/O tubal ligation Family History (Updated 02/26/24 @ 10:28 by VALENTINO Bay) Father HTN (hypertension) Diabetes Mother HTN (hypertension) Diabetes Paternal Aunt Breast cancer Paternal Aunt Ovarian cancer Paternal Uncle Colon cancer Social History Household Members: Children Housing: Apartment Do you presently have visiting nurse or other home services: No Alcohol intake: current Alcohol intake frequency: holidays/special occasions only Alcohol type: beer, wine and hard liquor Comment: changed to low fall risk Patient Tobacco Use Status: Current everyday Tobacco user Tobacco use type: Cigarette Cigarette Packs Per Day: 0.5 Cigarettes Per Day: 5 Years Smoked: 3 e-Cigarette/Vaping Use: Never Used Second Hand Smoke Exposure: Yes Substance Use Type: Marijuana service: No Current occupational status: employed 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 1. Little interest or pleasure in doing things: not at all 2. Feeling down, depressed, or hopeless: not at all 3. Trouble falling or staying asleep, or sleeping too much: not at all 4. Feeling tired or having little energy: not at all 5. Poor appetite or overeating: not at all 6. Feeling bad about yourself - or that you are a failure or have let yourself or your family down: not at all 7. Trouble concentrating on things, such as reading the newspaper or watching television: not at all 8. Moving or speaking so slowly that other people could have noticed. Or the opposite - being so fidgety or restless that you have been moving around a lot more than usual: not at all 9. Thoughts that you would be better off or of hurting yourself in some way: not at all Total score: 0 Depression Screening Interpretation: Negative Depression Screening Done: Yes Source: Developed by Drs. Mark Santillan, Kimberly Hernandez, Meet Hercules and colleagues, with an educational darien from [employer]. Thrive Questionnaire Date Thrive assessed: 02/15/24 AUDIT C Alcohol Use Questionnaire (AUDIT-C) 2. How many drinks containing alcohol do you have on a typical day when you are drinking?: 1 or 2 3. How often do you have six or more drinks on one occasion?: Monthly Total Score: 2 LAINA-7 AMB Questionnaire LAINA-7 Date LAINA - 7 assessed: 02/26/24 Feeling nervous, anxious, or on edge: 0 = Not at all Not being able to stop or control worryin = Not at all Worrying too much about different things: 0 = Not at all Trouble relaxin = Not at all Being so restless that it is hard to sit still: 0 = Not at all Becoming easily annoyed or irritable: 0 = Not at all Feeling afraid as if something awful might happen: 0 = Not at all Total LAINA-7 score (0-4 normal; 5-9 mild; 10-14 moderate; 15-21 severe): 0 Source: Developed by Drs. Mark Santillan, Kimberly Hernandez, Meet Hercules and colleagues, with an educational darien from [employer]. Physical exam (Primary Care) Vital Signs: Last Vital Signs Pulse 55 02/26/24 10:21 BP 140/90 H 02/26/24 10:21 Pulse Ox 98 02/26/24 10:21 Oxygen Delivery Method Room Air 02/26/24 10:21 BMI result Body Mass Index 30.9 Tobacco/Smoking Status: Tobacco use Status Tobacco use date assessed 02/26/24 02/26/24 10:30 Patient Tobacco Use Status Current everyday Tobacco 02/26/24 10:30 Tobacco use type Cigarette 02/26/24 10:30 e-Cigarette/Vaping Use Never Used 02/26/24 10:30 PHQ-9: PHQ-9 Score PHQ-9: Total score 0 02/26/24 10:30 Depression Screening Interpretation: Negative Thrive Assessment: Date of Thrive Assessment Date Thrive assessed 02/15/24 02/26/24 10:30 Coding Level of Care Code New Pt Level 4 (59358) Complex EM visit Add On G2211 Diagnoses Essential hypertension I10 Abdominal pain R10.9 Assessment & Plan Assessment & Plan (1) Essential hypertension: Code(s): I10 - Essential (primary) hypertension Category: Medical Plan: New Diagnosis. Lisinopril started. Follow up appt in one month. Patient wishes to transfer care from Dr Shah to myself. I agreed. (2) Abdominal pain: Code(s): R10.9 - Unspecified abdominal pain Plan: Condition has resolved. Hospital note revd. Patient was asked to resume work. Plan History of Present Illness The patient is a 38-year-old female presenting with concerns about elevated blood pressure and postoperative recovery following an appendectomy. She was previously admitted for appendicitis and underwent a laparoscopic appendectomy without complications. Since the surgery, she reports having experienced high blood pressure, which was also noted four to five months prior to the surgical admission. This is a new finding for her, as she had no history of hypertension before. She notes symptoms such as strange headaches and blurry vision, which she associates with the onset of hypertension. She has not been on any antihypertensive medication to date. Post-surgery, she reports a gradual improvement in her physical state but has yet to return to work, as her recommended rest period extends to Mar 01. She denies any significant issues postoperatively and indicates full recovery from the appendectomy itself. 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 - Smoking: Smokes 4-5 cigarettes per day. - Recreational drug use: Uses marijuana occasionally. - Alcohol use: Occasionally uses alcohol, no reported substance abuse. - Family planning: Reports completion of family, has undergone tubal ligation. Review of Systems - Neurological: Reports visual disturbances, including blurry vision. - General: Reports new-onset headaches, described as strange in nature. Physical Exam General: Cooperative and healthy appearing Nutritional Appearance: Well nourished Orientation/consciousness: Patient oriented x3 Limitations: No limitations Head: Normal to inspection General: Appearance normal, both eyes and all related structures Neck: Normal visual inspection Chest: Normal palpation of entire chest wall Respiratory: Normal respiratory effort Neurology: Patient oriented x3 Results Plan - Prescribing lisinopril for management of essential hypertension. The patient is instructed to take the medication once daily. - Recommend follow-up for hypertension management and further evaluation of visual disturbances and headaches. - Ensuring continuity of care by confirming an appointment for follow-up in one month with myself as her healthcare provider. Patient was informed and verbally consented to the use of an ambient scribe for clinic note documentation during this visit. Discussion Notes During the visit, I discussed the management plan for the patient's newly diagnosed essential hypertension. I explained the role of antihypertensive medication, specifically lisinopril, in controlling blood pressure and reducing potential complications. The importance of consistent medication adherence was emphasized. I explored the patient's visual and headache symptoms, noting the correlation with elevated blood pressure, and advised ongoing monitoring with follow-up care as planned. The patient agreed to a follow-up appointment in one month and was informed how to recognize signs warranting earlier review, such as significant worsening of headaches or visual changes. Patient Instructions - Begin lisinopril as prescribed, taking it once a day. - Schedule and attend a follow-up appointment in one month. - Monitor and report any worsening or new symptoms, especially related to vision or headaches. - Refrain from returning to work until the advised date of the . - Maintain lifestyle modifications including reducing cigarette consumption. - Ensure completion of the follow-up appointment scheduling before leaving the office today.
[2024-02-26 10:21] VITALS: BP 140/90; PULSE 55; O2SAT 98; BMI 30.9
== END 2024-02-26 11:18 | disposition home or self-care (01) ==
PROVIDERS: PCP Internal Medicine; Visit Provider Internal Medicine
DX: I10 Essential (primary) hypertension (principal); R10.9 Unspecified abdominal pain

== ENCOUNTER → 2024-02-26 09:54 | Outpatient (BNVA) | payer MEDICAID, SELFPAY | PROVIDERS: PCP Internal Medicine; Visit Provider Internal Medicine | DX: I10 Essential (primary) hypertension (principal); R10.9 Unspecified abdominal pain; Z09 Encounter for follow-up examination after completed treatment for conditions other than malignant neoplasm; Z90.89 Acquired absence of other organs | CPT/HCPCS: 96127; 99202; 99212 ==

== ENCOUNTER 2024-02-26 13:57 | Outpatient (AMB) | payer MEDICAID, SELFPAY ==
--- NOTE | 2024-02-26 14:05 | A.OFFVIS_ITS ---
Vital Signs 02/26/24 14:14 Height 5 ft 2 in Weight 171 lb BMI 31.3 BP 147/84 H Blood Pressure Location Lt brachial Position Sitting Pulse 65 Intake Visit Reasons: s/p appendectomy Intake Note: Patient is seen in office for post op assessment post laparoscopic appendectomy. Pt c/o: painful to bend over and when putting on pants, denies any signs of infection surgery:02/15/24 Records And Information Manager Required: No Accompanied by: Self / Same As Patient Allergies sumatriptan [From IMITREX] Allergy (Intermediate, Verified 02/26/24 10:20) VOMITING/DIZZINESS topiramate [Topamax] Allergy (Unknown, Verified 02/26/24 10:20) nausea SHELLFISH Allergy (Severe, Uncoded 02/26/24 10:20) SWELLING shellfish Allergy (Unknown, Uncoded 02/14/24 14:03) hives trees, ragweed, grass Allergy (Unknown, Uncoded 02/26/24 10:20) rash HPI Comments Details: 38-year-old female patient returning status post laparoscopic appendectomy for acute appendicitis. She still feels somewhat distended with pain only when bending down. This is mainly in the area of the umbilical and left lower quadrant incisions. She denies any fever, chills, nausea, vomiting, or difficulty having a bowel movement. [facility] Medical History Essential hypertension Asthma Surgical History History of laparoscopic appendectomy (02/15/24) H/O tubal ligation Family History Father HTN (hypertension) Diabetes Mother HTN (hypertension) Diabetes Paternal Aunt Breast cancer Paternal Aunt Ovarian cancer Paternal Uncle Colon cancer Social History Household Members: Children Housing: Apartment Do you presently have visiting nurse or other home services: No Alcohol intake: current Alcohol intake frequency: holidays/special occasions only Alcohol type: beer, wine and hard liquor Comment: changed to low fall risk Patient Tobacco Use Status: Current everyday Tobacco user Tobacco use type: Cigarette Cigarette Packs Per Day: 0.5 Cigarettes Per Day: 5 Years Smoked: 3 e-Cigarette/Vaping Use: Never Used Second Hand Smoke Exposure: Yes Substance Use Type: Marijuana service: No Current occupational status: employed 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 No hernia with Valsalva maneuvers Neuro General: patient oriented x3 Extrem General: Yes no clubbing, cyanosis or edema Assessment & Plan Assessment & Plan (1) S/P laparoscopic appendectomy: Code(s): Z90.49 - Acquired absence of other specified parts of digestive tract Category: Surgical Plan 38-year-old female status post laparoscopic appendectomy for acute appendicitis. She tolerated the procedure well and her wounds are healing nicely. She may return to normal activity without restrictions and should follow up as needed. Coding Level of Care Code Global (66232) Diagnoses S/P laparoscopic appendectomy Z90.49
[2024-02-26 14:14] VITALS: BP 147/84; PULSE 65; BMI 31.3
== END 2024-02-26 14:21 | disposition home or self-care (01) ==
PROVIDERS: PCP Internal Medicine; Visit Provider Surgery
DX: Z90.49 Acquired absence of other specified parts of digestive tract (principal)
CPT/HCPCS: 99024

== ENCOUNTER 2024-11-23 06:50 | Emergency (ER) | payer MEDICAID, SELFPAY ==
--- NOTE | 2024-11-23 07:18 | ED_ITS ---
HPI - General Adult General Chief complaint: Allergic Reaction Stated complaint: allergic reaction swollen lip Time Seen by Provider: 11/23/24 07:03 Source: patient Mode of arrival: ambulatory Limitations: no limitations History of Present Illness ED Provider: SAEED MONTOYA PA-C HPI narrative: 39 yo F with PMH asthma and HTN presents to the ED today with concerns of allergic reaction. She reports waking up approximately 2 hours ago with left upper lip swelling. This did not wake her from her sleep. Reports pain secondary to the swelling. No odynophagia, dental pain, or dyspnea. No throat closing sensation. Reports generalized itching to her entire body. Reports taking one dose of Benadryl without much improvement in swelling, prompting her to come to the ED for further evaluation. Denies new medications, abx, soaps, lotions, detergents. Denies insect bites. Patient states she was placed on Lisinopril for her HTN back in February of 2024. She self discontinued this medication about 3 weeks ago as she believed it was making her itchy. She has not discussed this with her prescriber. Patient reports history of allergy to sumatriptan, topiramate, shellfish, and environmental. Denies exposure to any of these allergens. Reports shellfish is her only anaphylactic allergy for which she keeps an epipen at home. She has not had to use this in many years. She denies similar lip swelling in the past. Denies fever, chills, sore throat, difficulty breathing, N/V/D, abdominal pain. Related Data Home Medications ?Medication ?Instructions ?Recorded ?Confirmed cetirizine 10 mg tablet (Zyrtec) 10 mg PO DAILY PRN Pa in 08/20/21 02/14/24 acetaminophen 500 mg tablet 1,000 mg PO DAILY PRN Pain 02/14/24 02/14/24 Previous Rx's ?Medication ?Instructions ?Recorded docusate sodium 100 mg capsule 100 mg PO BID #30 caps 02/16/24 (Colace) lisinopril 10 mg tablet 10 mg PO DAILY #90 tabs 08/09 09/01 diphenhydramine HCl 25 mg capsule 25 mg PO TID PRN itc júnior #30 caps 11/23/24 (Benadryl) famotidine 20 mg tablet (Pepcid) 20 mg PO DAILY 5 days #5 tabs 11/23/24 prednisone 20 mg tablet 40 mg (2 x 20 mg) PO DAILY 5 days 11/23/24 #10 tabs Allergies Allergy/AdvReac Type Severity Reaction Status Date / Time sumatriptan (From IMITREX) Allergy Intermediate VOMITING/DI Verified 11/23/24 07:25 ZZINESS topiramate (Topamax) Allergy Unknown nausea Verified 11/23/24 07:25 SHELLFISH Allergy Severe SWELLING Uncoded 11/23/24 07:25 shellfish Allergy Unknown hives Uncoded 11/23/24 07:25 trees, ragweed, grass Allergy Unknown rash Uncoded 11/23/24 07:25 Review of Systems 2 Review of Systems: Yes all other systems are reviewed and are negative PMFSH Past Medical History Attestation statement: The following information was validated with the patient. Source: old records reviewed and nursing notes reviewed Medical History Essential hypertension Asthma Surgical History History of laparoscopic appendectomy (02/15/24) H/O tubal ligation Family History Family History Father HTN (hypertension) Diabetes Mother HTN (hypertension) Diabetes Paternal Aunt Breast cancer Paternal Aunt Ovarian cancer Paternal Uncle Colon cancer Social History Social History Household Members: Children Housing: Apartment Do you presently have visiting nurse or other home services: No Alcohol intake: current Alcohol intake frequency: holidays/special occasions only Alcohol type: beer, wine and hard liquor Comment: changed to low fall risk Patient Tobacco Use Status: Current everyday Tobacco user Tobacco use type: Cigarette Cigarette Packs Per Day: 0.5 Cigarettes Per Day: 5 Years Smoked: 3 Smoked in Last 30 Days: No e-Cigarette/Vaping Use: Never Used Second Hand Smoke Exposure: Yes Substance Use Type: Marijuana Advance Directives: Yes Advance Directives on File: Yes Advance Directives Date on File: 02/19/24 Do you have a plan to hurt others: No Plan service: No Current occupational status: employed 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 not hypoxic. General: Well appearing, in no acute distress. Skin: Warm, dry, intact. No rashes or lesions. Head: Normocephalic, atraumatic. EENT: Hearing is intact b/l. Conjunctiva clear. Sclera is anicteric. PERRLA. EOM intact. Moist mucous membranes.?+see photo below. noted swelling to upper lip Neck: Supple without LAD Cardiac: Chest wall symmetric. RRR Lungs: Normal respiratory effort without accessory muscle use. CTA bilaterally. No rales, rhonchi, or wheezes.? Abdomen: Soft, non-tender, non-distended. No rebound tenderness or guarding. Positive BS x4. Ext: Upper and lower extremities atraumatic, without tenderness, deformity, swelling or erythema Neuro: AOx3. Normal speech. Ambulating with steady gait. Psych: Appropriate mood and affect. Responds appropriately to questions. Course Course Course Narrative: 1045 -- Findings consistent with angioedema secondary to lisinopril. Patient treated with Pepcid and Solu-Medrol in the ED. she has been observed for at least 4 hours. Reports improvement in itching. No signs of respiratory distress. I feel patient can be discharged home on steroid/antihistamine and outpatient follow-up. Advised to discontinue lisinopril and f/u with provider for management of her hypertension. Patient has remained stable throughout ED visit today. Discussed worrisome signs and symptoms and when to return to the ED. All questions answered at this time. Patient is agreeable with disposition and stable for discharge. Medications Administered Discontinued Medications Generic Name Dose Route Start Last Admin Trade Name Freq PRN Reason Stop Dose Admin Famotidine 20 mg 11/23/24 07:19 11/23/24 07:43 Famotidine/Pf 20 Mg/2 Ml Vial IVPUSH 11/23/24 07:20 20 mg ONCE ONE Administration Sodium Chloride 1,000 mls @ 999 mls/hr 11/23/24 07:45 11/23/24 10:59 Ns IV 11/23/24 08:45 Infused .Q1H1M ARACELI Infusion Methylprednisolone Sodium Succinate 80 mg 11/23/24 07:19 11/23/24 07:43 Methylprednisolone Sod Succ 125 Mg/2 Ml Vial IVPUSH 11/23/24 07:20 80 mg ONCE ONE Administration Medical Decision Making Medical Decision Making MDM Narrative: 39 yo F with PMH asthma and HTN presents to the ED today with concerns of allergic reaction. patient is hypertensive, vitals are otherwise wnl. she is well appearing and in NAD. please refer to exam portion for findings. airway is patent and there is no acute respiratory distress. Differential diagnosis includes allergic reaction, angioedema, contact dermatitis. Unlikely anaphylaxis. Plan for supportive management and observation. Differential Diagnosis Differential Diagnoses: The differential diagnosis associated with the presentation includes Admission/Observation not indicated. Social Determinants Patient?s care significantly limited by Social Determinants of Health including: Other Social Determinant of Health Critical Care Time Critical Care Time Critical Care Time: No Discharge Plan Discharge Clinical Impression: Angioedema Patient Disposition: Home, Self-Care Instructions: Angioedema (ED) Additional Instructions: You have been evaluated in the Emergency Department today for concern of allergic reaction. I have suspicion that your lip swelling is a side effect of your lisinopril. DO NOT RESTART THIS MEDICATION. I recommend you follow up with your primary care provider regarding further management of your blood pressure. You have been given medications to control your symptoms and after observation for several hours in the Emergency Department, you are stable for discharge at this time. I am sending Benadryl and Pepcid to your pharmacy to help control your symptoms. You have also been given a prescription for steroids, please take them as directed starting tomorrow as you already received a dose in ED today. Please schedule an appointment with your primary care provider for follow up. I have provided you with a referral to an precipitator supervisor for further testing. Call them to establish care, they will not call you. Return to the Emergency Department if you experience rashes, difficulty breathing or swallowing, lip/mouth/tongue swelling, vomiting, or for any other concerning symptoms. Prescriptions: New prednisone 20 mg tablet 40 mg PO DAILY 5 Days Qty: 10 0RF famotidine [Pepcid] 20 mg tablet 20 mg PO DAILY 5 Days Qty: 5 0RF diphenhydramine HCl [Benadryl] 25 mg capsule 25 mg PO TID PRN (Reason: itching) Qty: 30 0RF No Action lisinopril 10 mg tablet 10 mg PO DAILY Qty: 90 0RF acetaminophen 500 mg Tablet 1,000 mg PO DAILY PRN (Reason: Pain) docusate sodium [Colace] 100 mg capsule 100 mg PO BID Qty: 30 0RF cetirizine [Zyrtec] 10 mg tablet 10 mg PO DAILY PRN (Reason: Pain) Referrals: Physician,Unknown J [Primary Care Provider, Medical] Stand Alone Forms: Work/School Release Interventions: ED Discharge Assessment Last Done: 11/23/24 11:15 Discharge Date/Time: 11/23/24 11:15 Print Language: Indonesian
[2024-11-23 07:23] VITALS: BP 153/97; PULSE 71; RESP 18; TEMP 36.6; O2SAT 98; BMI 32.3
--- OUTSIDE RECORDS SUMMARY | 2024-11-23 07:45 | XMS_ITS | Clinical Summary ---
Author Organization [employer] Address 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 Role Phone Unavailable Primary Care Provider Unavailabl e Social History Tobacco Use Types Packs/Day Years Used Date Smoking Tobacco: Never Assessed Comments Unknown Sex and Gender Information Value Date Recorded Sex Assigned at Not on file Legal Sex Female 2:16 AM EST Gender Identity Not on file Sexual Orientation Not on file Plan of Treatment Health Maintenance Due Date Last Done Comments Depression Screening 1987 HIV Screening 1987 SDOH Screening 1987 Disability Screening 1987 Alcohol/Substance Use Screening 1999 Tobacco Screening 1999 Family Planning (PISQ) 07/13/2002 HPV Vaccines (1 - 3-dose series) 07/13/2002 Hepatitis C Screening 07/13/2005 DTaP/Tdap/Td Vaccines (1 - Tdap) 07/13/2006 Hepatitis B Vaccines (1 of 3 - 19+ 3-dose series) 07/13/2006 Pap Smear 07/13/2008 Cervical Cancer Screening 07/13/2017 HPV/Cotest 07/13/2017 COVID-19 Vaccine (1 - 2023-2 5 season) 2024 Influenza Vaccine (#1) 2024 Zoster Vaccines (1 of 2) 07/13/2037 RSV Patients and Pa tients Aged 60 years or older (1 - 1-dose 75+ series) 07/13/2062 HIB Vaccines Aged Out No longer eligi ble based on patient's age to complete this topic Hepatitis A Vaccines Aged Out No long er eligible based on patient's age to complete this topic IPV Vaccines Aged Out No longer eligi ble based on patient's age to complete this topic Meningococcal B Vaccine Aged Out No l onger eligible based on patient's age to complete this topic Meningococcal Vaccine Aged Out No abdirahman jeff eligible based on patient's age to complete this topic Pneumococcal Vaccine: Pediat rics (0 to 5 Years) and At-Risk Patients (6 to 49) Years Aged Out No longer eligible b ased on patient's age to complete this topic RSV under 20 months Aged Out No longe r eligible based on patient's age to complete this topic Rotavirus Vaccines Aged Out No longer eligible based on patient's age to complete this topic
[2024-11-23 11:15] VITALS: BP 153/97; PULSE 71; RESP 18; TEMP 36.6; O2SAT 98
== END 2024-11-23 11:15 | disposition home or self-care (01) ==
PROVIDERS: Emergency Provider Emergency Medicine
DX: T78.3XXA Angioneurotic edema, initial encounter (principal); Y99.9 Unspecified external cause status; K13.0 Diseases of lips
CPT/HCPCS: 96361; 96374; 96375; 99284; J1308; J2919